=== PATIENT | male | born 1935 | race Caucasian/White ===

== ENCOUNTER 2016-12-18 09:15 | Outpatient (CLI) | payer MEDICARE, OTHER | END 2016-12-18 23:59 | DX: R73.01 Impaired fasting glucose (principal); C90.00 Multiple myeloma not having achieved remission; I10 Essential (primary) hypertension; I48.0 Paroxysmal atrial fibrillation ==

== ENCOUNTER 2017-05-28 11:11 | Outpatient (CLI) | payer MEDICARE, OTHER ==
--- NOTE | 2017-05-28 17:38 | Ultrasound Report ---
ULTRASOUND LEFT POSTERIOR CHEST: 05/28/2017 CLINICAL INDICATION: Palpable lesion. TECHNIQUE: Real-time scanning was performed with auto service representative static images obtained. Ultrasound of the left posterior chest was performed. No discrete solid or cystic mass is seen. No sonographically suspicious findings are identified. IMPRESSION: NO SONOGRAPHIC CORRELATE TO THE PALPABLE ABNORMALITY. JOB #: [id number] EXT JOB #:
== END 2017-05-28 11:12 | disposition home or self-care (01) ==
LOC: DI 11:11
PROVIDERS: ATTEND Nurse Practitioner Family
DX: R22.2 Localized swelling, mass and lump, trunk (principal)
CPT/HCPCS: 76604

== ENCOUNTER 2017-08-02 14:54 | Outpatient (CLI) | payer MEDICARE, OTHER ==
[2017-08-02 13:18] LABS: BASOPHILS % (AUTO) 0.8 %; EOSINOPHILS # (AUTO) 0.1 10^3/uL (0.0-0.7); EOSINOPHILS % (AUTO) 1.6 %; HCT - HEMATOCRIT 36.7 % (42.0-52.0); HGB - HEMOGLOBIN 12.7 g/dL (14.0-18.0); LYMPHOCYTES # (AUTO) 1.5 10^3/uL (1.5-3.5); LYMPHOCYTES % (AUTO) 38.5 %; MEAN CORPUSCULAR HEMOGLOBIN 34.2 pg (27.0-31.0); MEAN CORPUSCULAR HGB CONC 34.6 g/dL (32.0-36.0); MEAN PLATELET VOLUME 9.4 fL (7.4-11.4); MONOCYTES # (AUTO) 0.4 10^3/uL (0.0-1.0); NEUTROPHILS % (AUTO) 49.1 %; NUCLEATED RED BLOOD CELLS AUTO 0.2 /100WBC; RED BLOOD COUNT 3.71 10^6/uL (4.70-6.10); RED CELL DISTRIBUTION WIDTH 15.1 % (12.0-15.0)
[2017-08-02 14:23] LABS: ALBUMIN/GLOBULIN RATIO 0.7 (1.0-2.2); BILIRUBIN,TOTAL 2.2 mg/dL (0.2-1.0); BUN - BLOOD UREA NITROGEN 15 mg/dL (6-20); CALCIUM 9.4 mg/dL (8.5-10.3); CARBON DIOXIDE - CO2 24 mmol/L (21-32); CHLORIDE 106 mmol/L (101-111); CHOL/HDL RATIO 3.2 (<5.0); CHOLESTEROL 93 mg/dL; CREATININE 1.1 mg/dL (0.6-1.2); GFR - MDRD 64 (>89); GLUCOSE 128 mg/dL (70-100); HDL CHOLESTEROL 29 mg/dL; LDL/HDL RATIO 1.7 (<3.6); POTASSIUM 3.7 mmol/L (3.5-5.0); SODIUM 137 mmol/L (135-145); TOTAL PROTEIN 9.5 g/dL (6.7-8.2); TRIGLYCERIDES 73 mg/dL; VLDL CHOLESTEROL 15 mg/dL
== END 2017-08-02 14:55 | disposition home or self-care (01) ==
LOC: LAB.WCP 14:54
PROVIDERS: ATTEND Family Medicine
DX: C90.00 Multiple myeloma not having achieved remission (principal)
CPT/HCPCS: 36415; 80053; 80061; 85025

== ENCOUNTER 2017-08-19 12:52 | Outpatient (CLI) | payer MEDICARE, OTHER | END 2017-08-19 12:53 | disposition home or self-care (01) | LOC: DI 12:52 | PROVIDERS: ATTEND Family Medicine | DX: I48.91 Unspecified atrial fibrillation (principal); I77.810 Thoracic aortic ectasia; I07.1 Rheumatic tricuspid insufficiency | CPT/HCPCS: 93306 ==

== ENCOUNTER 2017-09-19 15:00 | Outpatient (CLI) | payer MEDICARE, OTHER | END 2017-09-19 15:01 | disposition home or self-care (01) | LOC: SC 15:00 | PROVIDERS: ATTEND Specialist | DX: R06.83 Snoring (principal); R53.83 Other fatigue; I48.91 Unspecified atrial fibrillation; G47.00 Insomnia, unspecified | CPT/HCPCS: 99205; G0463; 99212 ==

== ENCOUNTER 2017-10-10 13:21 | Outpatient (CLI) | payer MEDICARE, OTHER | END 2017-10-10 23:59 | disposition home or self-care (01) | LOC: RT 13:21 | PROVIDERS: ATTEND Internal Medicine Cardiovascular Disease | DX: I48.0 Paroxysmal atrial fibrillation (principal) | CPT/HCPCS: 93005 ==

== ENCOUNTER 2017-11-06 08:00 | Outpatient (CLI) | payer MEDICARE, OTHER | END 2017-11-06 08:01 | disposition home or self-care (01) | LOC: LAB.R 08:00 | PROVIDERS: ATTEND Physician Assistant Medical | DX: L02.91 Cutaneous abscess, unspecified (principal) | CPT/HCPCS: 87070; 87205 ==

== ENCOUNTER 2017-12-06 22:28 | Outpatient (CLI) | payer MEDICARE, OTHER | END 2017-12-06 22:29 | disposition home or self-care (01) | LOC: SC 22:28 | PROVIDERS: ATTEND Specialist | DX: G47.33 Obstructive sleep apnea (adult) (pediatric) (principal); I48.91 Unspecified atrial fibrillation; G47.61 Periodic limb movement disorder | CPT/HCPCS: 95810 ==

== ENCOUNTER 2018-01-15 14:16 | Outpatient (CLI) | payer MEDICARE, OTHER | END 2018-01-15 14:17 | disposition home or self-care (01) | LOC: SC 14:16 | PROVIDERS: ATTEND Nurse Practitioner Family | DX: G47.33 Obstructive sleep apnea (adult) (pediatric) (principal); G47.61 Periodic limb movement disorder; I48.91 Unspecified atrial fibrillation | CPT/HCPCS: 99214; G0463; 99212 ==

== ENCOUNTER 2019-04-03 11:38 | Outpatient (CLI) | payer MEDICARE, OTHER ==
--- NOTE | 2019-04-03 14:36 | XRAY Report ---
Reason: PNEUMONIA Procedure Date: 04/03/2019 Accession Number: [id number] / [id number] Procedure: WCP - Chest 2 View X-Ray CPT Code: 76243 FULL RESULT: EXAM: CHEST RADIOGRAPHY EXAM DATE: 04/03/2019 11:47 AM. CLINICAL HISTORY: PNEUMONIA. Cough COMPARISON: 3 516 TECHNIQUE: 2 views. FINDINGS: Lungs/Pleura: No focal opacities evident. No pleural effusion. No pneumothorax. Normal volumes. Mediastinum: Heart is borderline in size Other: Upper trachea deviated to the right. Rounded calcification over the left apex question enlarged thyroid. Degenerative change in the shoulders and spine. IMPRESSION: Clear lungs. Borderline heart size. Tracheal deviation to the right with possible partially calcified thyroid nodule. Suggest correlation with thyroid ultrasound. RADIA
== END 2019-04-03 11:39 | disposition home or self-care (01) ==
LOC: DI.WCP 11:38
PROVIDERS: ATTEND Family Medicine
DX: J18.9 Pneumonia, unspecified organism (principal); J39.8 Other specified diseases of upper respiratory tract
CPT/HCPCS: 71046

== ENCOUNTER 2020-05-12 08:00 | Outpatient (CLI) | payer MEDICARE, OTHER ==
[2020-05-12 18:41] LABS: BASOPHILS % (AUTO) 0.7 %; EOSINOPHILS # (AUTO) 0.1 10^3/uL (0.0-0.7); EOSINOPHILS % (AUTO) 2.2 %; HGB - HEMOGLOBIN 10.8 g/dL (14.0-18.0); LYMPHOCYTES # (AUTO) 1.2 10^3/uL (1.5-3.5); LYMPHOCYTES % (AUTO) 27.6 %; MEAN CORPUSCULAR HEMOGLOBIN 32.5 pg (27.0-31.0); MEAN CORPUSCULAR HGB CONC 32.4 g/dL (32.0-36.0); MEAN CORPUSCULAR VOLUME 100.3 fL (80.0-94.0); MEAN PLATELET VOLUME 11.5 fL (7.4-11.4); MONOCYTES # (AUTO) 0.5 10^3/uL (0.0-1.0); MONOCYTES % (AUTO) 12.5 %; NEUTROPHILS # (AUTO) 2.4 10^3/uL (1.5-6.6); NEUTROPHILS % (AUTO) 56.8 %; PLT - PLATELET COUNT 118 10^3/uL (130-450); RED BLOOD COUNT 3.32 10^6/uL (4.70-6.10); WHITE BLOOD COUNT 4.2 x10^3/uL (4.8-10.8)
[2020-05-12 19:00] LABS: CHOLESTEROL 95 mg/dL; HDL CHOLESTEROL 24 mg/dL; LDL CHOLESTEROL,CALCULATED 47 mg/dL; VLDL CHOLESTEROL 24 mg/dL
[2020-05-13 10:03] LABS: CREATININE,URINE 77.6 mg/dL; MICROALBUM/CREATININE RATIO,UR 373.7 ug/mg (<30.0)
[2020-05-13 10:13] LABS: HB2 TOTAL 11.8 g/dL; HEMOGLOBIN A1C 0.54 g/dL; HEMOGLOBIN A1C % 6.3 % (4.6-6.2)
== END 2020-05-12 23:59 | disposition home or self-care (01) ==
LOC: LAB.WCP 08:00
PROVIDERS: ATTEND Family Medicine
DX: I10 Essential (primary) hypertension (principal); D47.2 Monoclonal gammopathy; C90.00 Multiple myeloma not having achieved remission; I48.91 Unspecified atrial fibrillation; R73.01 Impaired fasting glucose
CPT/HCPCS: 36415; 80053; 80061; 82043; 82570; 83036; 83721; 84443; 85025

== ENCOUNTER 2021-04-04 09:46 | Outpatient (CLI) | payer MEDICARE, OTHER ==
[2021-04-04 12:16] LABS: CREATININE,URINE 60.8 mg/dL; MICROALBUM/CREATININE RATIO,UR 986.8 ug/mg (<30.0)
[2021-04-04 12:19] LABS: THYROID STIMULATING HORMONE 0.35 uIU/mL (0.34-5.60)
[2021-04-04 12:30] LABS: CHOL/HDL RATIO 2.6 (<5.0); CHOLESTEROL 98 mg/dL; HDL CHOLESTEROL 37 mg/dL; LDL CHOLESTEROL,CALCULATED 51 mg/dL; LDL/HDL RATIO 1.4 (<3.6); TRIGLYCERIDES 50 mg/dL; VLDL CHOLESTEROL 10 mg/dL
[2021-04-04 12:40] LABS: ESTIMATED AVERAGE GLUCOSE 97 mg/dL (70-100)
== END 2021-04-04 09:47 | disposition home or self-care (01) ==
LOC: LAB.N 09:46
PROVIDERS: ATTEND Internal Medicine
DX: E11.9 Type 2 diabetes mellitus without complications (principal); G62.9 Polyneuropathy, unspecified
CPT/HCPCS: 36415; 80061; 82043; 82570; 82607; 83036; 83721; 84443

== ENCOUNTER 2021-10-20 14:41 | Outpatient (CLI) | payer MEDICARE, OTHER ==
--- NOTE | 2021-10-20 17:46 | XRAY Report ---
PROCEDURE: Lumbar Spine 2 View INDICATIONS: ACUTE LUMBAR BACK PAIN, WITH HX OF MULTIPLE MYELOMA TECHNIQUE: 3 views of the lumbar spine were acquired. COMPARISON: December 13, 2016. FINDINGS: L-SPINE: 5 nonrib-bearing vertebrae. No acute displaced fracture or malalignment. The vertebral body heights are maintained. The disc space heights are essentially preserved. Mild anterior endplate ost eophytosis. Facet arthrosis, most prominent at L5-S1. The sacroiliac joints appear patent. SOFT TISSUES: Calcified gallstone in the right upper quadrant. IMPRESSION: 1.No acute osseous abnormality of the lumbar spine. Reviewed by: Luan Wells MD on 10/20/2021 5:45 PM PST Approved by: Luan Wells MD on 10/20/2021 5:45 PM PST Station ID: [id number]
== END 2021-10-20 14:42 | disposition home or self-care (01) ==
LOC: DI.N 14:41
PROVIDERS: ATTEND Internal Medicine
DX: M54.50 Low back pain, unspecified (principal)

== ENCOUNTER 2022-01-23 10:37 | Outpatient (CLI) | payer MEDICARE, OTHER ==
[2022-01-23 18:21] LABS: CHOL/HDL RATIO 2.3 (<5.0); CHOLESTEROL 86 mg/dL; HDL CHOLESTEROL 38 mg/dL; LDL CHOLESTEROL,CALCULATED 38 mg/dL; TRIGLYCERIDES 48 mg/dL; VLDL CHOLESTEROL 10 mg/dL
[2022-01-23 18:39] LABS: THYROID STIMULATING HORMONE 0.58 uIU/mL (0.34-5.60)
[2022-01-23 20:44] LABS: ESTIMATED AVERAGE GLUCOSE 108 mg/dL (70-100); HEMOGLOBIN A1c% 5.4 % (4.27-6.07)
== END 2022-01-23 10:38 | disposition home or self-care (01) ==
LOC: LAB.N 10:37
PROVIDERS: ATTEND Internal Medicine
DX: E11.9 Type 2 diabetes mellitus without complications (principal)
CPT/HCPCS: 36415; 80061; 83036; 83721; 84443

== ENCOUNTER 2022-11-29 09:57 | Outpatient (CLI) | payer MEDICARE, OTHER ==
[2022-11-29 12:15] LABS: BUN - BLOOD UREA NITROGEN 20 mg/dL (6-20); CALCIUM 9.9 mg/dL (8.5-10.3); CARBON DIOXIDE - CO2 26 mmol/L (21-32); CHLORIDE 106 mmol/L (101-111); CHOL/HDL RATIO 2.6 (<5.0); CHOLESTEROL 95 mg/dL; GFR - MDRD 71 (>89); GLUCOSE 109 mg/dL (70-100); HDL CHOLESTEROL 36 mg/dL; LDL CHOLESTEROL,CALCULATED 50 mg/dL; LDL/HDL RATIO 1.4 (<3.6); POTASSIUM 3.9 mmol/L (3.5-5.0); SODIUM 136 mmol/L (135-145); TRIGLYCERIDES 47 mg/dL; VLDL CHOLESTEROL 9 mg/dL
[2022-11-29 13:06] LABS: ESTIMATED AVERAGE GLUCOSE 114 mg/dL (70-100); HEMOGLOBIN A1c% 5.6 % (4.27-6.07)
== END 2022-11-29 09:58 | disposition home or self-care (01) ==
LOC: LAB.N 09:57
PROVIDERS: ATTEND Internal Medicine
DX: E11.9 Type 2 diabetes mellitus without complications (principal)
CPT/HCPCS: 36415; 80048; 80061; 83036; 83721

== ENCOUNTER 2023-01-30 08:50 | Outpatient (CLI) | payer MEDICARE, OTHER ==
[2023-01-30] MEDS ORDERED: LIDOCAINE-MPF 1% 5 ML VIAL ONE (09:25)
[2023-01-30] MEDS ORDERED: MIDAZOLAM 2 MG/2 ML VIAL ONE (09:32)
[2023-01-30] MEDS ORDERED: fentaNYL 100 MCG/2 ML VIAL ONE (09:32)
[2023-01-30 09:58] LABS: BASOPHILS % (AUTO) 0.8 %; EOSINOPHILS # (AUTO) 0.1 10^3/uL (0.0-0.7); EOSINOPHILS % (AUTO) 1.9 %; HCT - HEMATOCRIT 36.5 % (42.0-52.0); HGB - HEMOGLOBIN 12.3 g/dL (14.0-18.0); LYMPHOCYTES # (AUTO) 1.1 10^3/uL (1.5-3.5); LYMPHOCYTES % (AUTO) 28.5 %; MEAN CORPUSCULAR HEMOGLOBIN 33.4 pg (27.0-31.0); MEAN CORPUSCULAR HGB CONC 33.7 g/dL (32.0-36.0); MEAN CORPUSCULAR VOLUME 99.2 fL (80.0-94.0); MEAN PLATELET VOLUME 11.6 fL (7.4-11.4); MONOCYTES # (AUTO) 0.5 10^3/uL (0.0-1.0); MONOCYTES % (AUTO) 12.3 %; NEUTROPHILS # (AUTO) 2.1 10^3/uL (1.5-6.6); NEUTROPHILS % (AUTO) 56.2 %; PLT - PLATELET COUNT 118 10^3/uL (130-450); RED BLOOD COUNT 3.68 10^6/uL (4.70-6.10); RED CELL DISTRIBUTION WIDTH 15.5 % (12.0-15.0); WHITE BLOOD COUNT 3.8 x10^3/uL (4.8-10.8)
[2023-01-30 10:24] LABS: INR 1.5 (0.8-1.2)
[2023-01-30 10:31] LABS: PARTIAL THROMBOPLASTIN TIME 39.6 secs (24.9-33.3)
[2023-01-30] MEDS ORDERED: fentaNYL 100 MCG/2 ML VIAL IVP PRN (10:50)
[2023-01-30] MEDS ORDERED: MIDAZOLAM 2 MG/2 ML VIAL IVP ONE (10:50)
[2023-01-30] MEDS ORDERED: LIDOCAINE-MPF 1% 5 ML VIAL SUBQ ONE (10:50)
[2023-01-30] MEDS ORDERED: LACTATED RINGERS 1,000 ML IV ONE (11:50)
--- NOTE | 2023-01-30 12:53 | CT Report ---
PROCEDURE: BONE MARROW BX W/ASPIRATION Sedation analgesia for 40 minutes. INDICATIONS: MULTIPLE MYELOMA TECHNIQUE: The indications, alternatives, benefits, risks, and possible complications of the procedure were comm unicated to the patient. Informed written consent from the patient was obtained and placed in the art. Continuous EKG and hemodynamic monitoring was started by trained personnel. For radiation dose reduction, the following was used: automated exposure control, adjustment of mA and/or kV according to patient size. The patient was brought to the CT suite and crozer operator spiral CT imaging was performed with localization g rid. The appropriate site for percutaneous access to the biopsy target was marked, was prepped and d raped sterilely, and was infused with local anaesthesia. Under CT guidance, a core biopsy trocar and needle set was advanced to the biopsy target, and specimen(s) were obtained. Bone marrow aspirate an d a bone core were obtained. The trocar and needle were then removed, and the patient was sent for po st-procedure monitoring. COMPARISON: None. FINDINGS: Biopsy site: Left posterior iliac bone Needle: 11 gauge biopsy needle with introducer trocar. Number of passes: 3 Medications: 1% lidocaine for local anaesthesia. IV Fentanyl and Versed for conscious sedation for 40 minutes (see nursing record). Complications: None. IMPRESSION: Successful CT-guided bone marrow biopsy and aspiration, left posterior iliac bone. Reviewed by: Lucien Calle MD on 01/30/2023 12:52 PM PDT Approved by: Lucien Calle MD on 01/30/2023 12:52 PM PDT Station ID: [id number]
[2023-01-30 13:05] VITALS: BP 138/72
== END 2023-01-30 08:51 | disposition home or self-care (01) ==
LOC: DI 08:50
PROVIDERS: ATTEND Internal Medicine Hematology & Oncology
DX: C90.00 Multiple myeloma not having achieved remission (principal)
CPT/HCPCS: 36415; 38222; 77012; 85025; 85610; 85730; J7120

== ENCOUNTER 2023-02-11 15:33 | Outpatient (CLI) | payer MEDICARE, OTHER ==
--- NOTE | 2023-02-11 15:49 | XRAY Report ---
PROCEDURE: Chest 2 View X-Ray INDICATIONS: SOB TECHNIQUE: 2 views of the chest were acquired. COMPARISON: None. FINDINGS: Surgical changes and devices: None. Lungs and pleura: Large right pleural effusion. Mediastinum: Mediastinal contours appear normal. Heart size is enlarged. Bones and chest wall: No suspicious bony lesions. Overlying soft tissues appear unremarkable. IMPRESSION: Large right pleural effusion. Reviewed by: Erich Johnson on 02/11/2023 3:48 PM PDT Approved by: Erich Johnson on 02/11/2023 3:48 PM PDT Station ID: [id number]
== END 2023-02-11 15:34 | disposition home or self-care (01) ==
LOC: DI 15:33
PROVIDERS: ATTEND Physician Assistant
DX: J90 Pleural effusion, not elsewhere classified (principal)

== ENCOUNTER 2023-02-12 10:30 | Emergency (ER) | payer MEDICARE, OTHER ==
--- OUTSIDE RECORDS SUMMARY | 2023-02-12 11:16 | EXTERNAL MEDICAL SUMMARY RPT | Continuity of Care Document ---
:1935 Author Organization [facility] Address [address] [place], [place] [id number] Phone Allergies No information. Encounters No information. Functional Status No information. Immunizations No information. Medications No information. Problems No information. Procedures No information. Results/Labs test date author facility value unit interpret ation Result panel 1 (unknown) (no (unknown) (unknown) (no value) (units (unk nown) date) unknown) (unknown) (no (unknown) (unknown) 12/27/22 (units (unkno wn) date) unknown) (unknown) (no (unknown) (unknown) 87 y/o M (units (unkno wn) date) presents to unknown) clinic for 2 -3 month follow-up. 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 unknown) (unknown) (no (unknown) (unknown) Documented By: (units (unknown) date) Matthew March MD unknown) 12/27/22 1415 (unknown) (no (unknown) (unknown) Draft (units (unkno wn) date) unknown) (unknown) (no (unknown) (unknown) Family History (units (unknown) date) (Reviewed unknown) 07/27/21 @ 16:14 by Matthew March MD) (unknown) (no (unknown) (unknown) Frequency of (units (u nknown) date) urination unknown) (unknown) (no (unknown) (unknown) H/O (units (unkno wn) date) transurethral unknown) resection of prostate (unknown) (no (unknown) (unknown) Hip joint (units (unkn own) date) replacement unknown) status (unknown) (no (unknown) (unknown) History of hip (units (unknown) date) replacement unknown) (unknown) (no (unknown) (unknown) Hyperlipidemia (units (unknown) date) unknown) (unknown) (no (unknown) (unknown) Hypertension (units (u nknown) date) unknown) (unknown) (no (unknown) (unknown) Incomplete (units (unk nown) date) emptying of unknown) bladder (unknown) (no (unknown) (unknown) Intake Note: (units (u nknown) date) unknown) (unknown) (no (unknown) (unknown) Intake performed (units (unknown) date) by: unknown) Liza Still (unknown) (no (unknown) (unknown) Intake (units (unkno wn) date) unknown) (unknown) (no (unknown) (unknown) Intake- Clincial (units (unknown) date) Staff unknown) (unknown) (no (unknown) (unknown) [facility] (units (unknown) date) unknown) (unknown) (no (unknown) (unknown) Loc: [facility] (units (unkno wn) date) unknown) (unknown) (no (unknown) (unknown) [id number] (units (unk nown) date) unknown) (unknown) (no (unknown) (unknown) Medical History (units (unknown) date) (Updated 11/16/21 unknown) @ 15:07 by Matthew March MD) (unknown) (no (unknown) (unknown) No Known Drug (units ( unknown) date) Allergies Allergy unknown) (Verified 10/22/22 15:05) (unknown) (no (unknown) (unknown) Nocturia (units (unkno wn) date) unknown) (unknown) (no (unknown) (unknown) Overactive (units (unk nown) date) bladder unknown) (unknown) (no (unknown) (unknown) PFSH (units (unkno wn) date) unknown) (unknown) (no (unknown) (unknown) Patient: (units (unkno wn) date) Jennifer Brady unknown) d MR#: (unknown) (no (unknown) (unknown) Reason For Visit (units (unknown) date) unknown) (unknown) (no (unknown) (unknown) Signed By: (units (unk nown) date) unknown) (unknown) (no (unknown) (unknown) Smoking Status: (units (unknown) date) Never smoker unknown) (unknown) (no (unknown) (unknown) Social History (units (unknown) date) (Reviewed unknown) 07/27/21 @ 16:14 by Matthew March MD) (unknown) (no (unknown) (unknown) Surgical History (units (unknown) date) (Reviewed unknown) 07/27/21 @ 16:14 by Matthew March MD) (unknown) (no (unknown) (unknown) This note may (units ( unknown) date) have been all or unknown) partially generated using voice recognition (unknown) (no (unknown) (unknown) Tobacco Status (units (unknown) date) unknown) (unknown) (no (unknown) (unknown) Type(s) of (units (unk nown) date) exercise: unknown) bicycling (unknown) (no (unknown) (unknown) Urology Office (units (unknown) date) Visit unknown) (unknown) (no (unknown) (unknown) Visit Reasons: (units (unknown) date) 2-3 MO F/U unknown) (unknown) (no (unknown) (unknown) alcohol intake: (units (unknown) date) never unknown) (unknown) (no (unknown) (unknown) caffeine: Yes (units ( unknown) date) unknown) (unknown) (no (unknown) (unknown) frequency: 5-6 (units (unknown) date) times per week unknown) (unknown) (no (unknown) (unknown) have occurred. (units (unknown) date) If there are any unknown) questions, please contact the Medical Records (unknown) (no (unknown) (unknown) household (units (unkn own) date) members: spouse unknown) (unknown) (no (unknown) (unknown) marital status: (units (unknown) date) unknown) (unknown) (no (unknown) (unknown) may occur. (units (unk nown) date) Occasional unknown) wrong-word or 'sound-alike' substitutions may have (unknown) (no (unknown) (unknown) occupational (units (u nknown) date) status: other unknown) (unknown) (no (unknown) (unknown) occurred due to (units (unknown) date) the inherent unknown) limitations of voice recognition software. Please (unknown) (no (unknown) (unknown) read the note (units ( unknown) date) carefully and unknown) recognize, using context, where these substitutions (unknown) (no (unknown) (unknown) software. (units (unkn own) date) Although every unknown) effort is made to edit content, blocklayer errors (unknown) (no (unknown) (unknown) substance use (units ( unknown) date) type: does not unknown) use Result panel 2 (unknown) (no (unknown) (unknown) (no value) (units (unk nown) date) unknown) (unknown) (no (unknown) (unknown) (1) Overactive (units (unknown) date) bladder: unknown) (unknown) (no (unknown) (unknown) (2) Incomplete (units (unknown) date) emptying of unknown) bladder: (unknown) (no (unknown) (unknown) (3) Nocturia: (units ( unknown) date) unknown) (unknown) (no (unknown) (unknown) 12/27/22 (units (unkno wn) date) unknown) (unknown) (no (unknown) (unknown) 01/08/23 1920 (units ( unknown) date) unknown) (unknown) (no (unknown) (unknown) 14:23 (units (unkno wn) date) unknown) (unknown) (no (unknown) (unknown) 87 y/o M presents (units (unknown) date) to clinic for 2 -3 unknown) month follow-up. (unknown) (no (unknown) (unknown) Add'l Complaint: (units (unknown) date) unknown) (unknown) (no (unknown) (unknown) Age/Sex: 87 / M (units (unknown) date) Date of Service: unknown) (unknown) (no (unknown) (unknown) Allergies (units (unkn own) date) unknown) (unknown) (no (unknown) (unknown) [place], [place] (units ( unknown) date) [id number] unknown) (unknown) (no (unknown) (unknown) Assessment + Plan (units (unknown) date) unknown) (unknown) (no (unknown) (unknown) Assessment and (units (unknown) date) plan: As noted in unknown) the history of present illness. 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 unknown) (unknown) (no (unknown) (unknown) Blood Pressure (units (unknown) date) Location Lt unknown) brachial (unknown) (no (unknown) (unknown) Brother Atrial (units (unknown) date) fibrillation unknown) (unknown) (no (unknown) (unknown) Cancer (units (unkno wn) date) unknown) (unknown) (no (unknown) (unknown) Chief Complaint (units (unknown) date) unknown) (unknown) (no (unknown) (unknown) Chief Complaint: (units (unknown) date) Overactive bladder unknown) (unknown) (no (unknown) (unknown) Code(s): (units (unkno wn) date) unknown) (unknown) (no (unknown) (unknown) : 1935 (units (unknown) date) Acct:[id number] unknown) (unknown) (no (unknown) (unknown) Dept at (units (unkno wn) date) . unknown) (unknown) (no (unknown) (unknown) Details: (units (unkno wn) date) unknown) (unknown) (no (unknown) (unknown) Documented By: (units (unknown) date) Matthew March MD unknown) 12/27/22 1415 (unknown) (no (unknown) (unknown) Family History (units (unknown) date) (Reviewed 07/27/21 unknown) @ 16:14 by Matthew March MD) (unknown) (no (unknown) (unknown) Frequency of (units (u nknown) date) urination unknown) (unknown) (no (unknown) (unknown) H/O transurethral (units (unknown) date) resection of unknown) prostate (unknown) (no (unknown) (unknown) HPI (units (unkno wn) date) unknown) (unknown) (no (unknown) (unknown) Hip joint (units (unkn own) date) replacement status unknown) (unknown) (no (unknown) (unknown) History of hip (units (unknown) date) replacement unknown) (unknown) (no (unknown) (unknown) Hyperlipidemia (units (unknown) date) unknown) (unknown) (no (unknown) (unknown) Hypertension (units (u nknown) date) unknown) (unknown) (no (unknown) (unknown) Incomplete (units (unk nown) date) emptying of bladder unknown) (unknown) (no (unknown) (unknown) Incomplete (units (unk nown) date) emptying of unknown) bladder, benign prostatic hyperplasia, frequency of (unknown) (no (unknown) (unknown) Intake Note: (units (u nknown) date) unknown) (unknown) (no (unknown) (unknown) Intake performed (units (unknown) date) by: Liza Still unknown) (unknown) (no (unknown) (unknown) Intake (units (unkno wn) date) unknown) (unknown) (no (unknown) (unknown) Intake- Clincial (units (unknown) date) Staff unknown) (unknown) (no (unknown) (unknown) [facility] (units (unknown) date) unknown) (unknown) (no (unknown) (unknown) Jackie and revisit (units (unknown) date) the beta 3 agonist unknown) at that time. We will see with the company (unknown) (no (unknown) (unknown) Loc: [facility] (units (unkno wn) date) unknown) (unknown) (no (unknown) (unknown) [id number] (units (unk nown) date) unknown) (unknown) (no (unknown) (unknown) Medical History (units (unknown) date) (Updated 11/16/21 @ unknown) 15:07 by Matthew March MD) (unknown) (no (unknown) (unknown) N32.81 - (units (unkno wn) date) Overactive bladder unknown) (unknown) (no (unknown) (unknown) No Known Drug (units ( unknown) date) Allergies Allergy unknown) (Verified 12/27/22 14:22) (unknown) (no (unknown) (unknown) Nocturia (units (unkno wn) date) unknown) (unknown) (no (unknown) (unknown) Overactive bladder (units (unknown) date) unknown) (unknown) (no (unknown) (unknown) Oxygen Delivery (units (unknown) date) Method room air unknown) (unknown) (no (unknown) (unknown) PFSH (units (unkno wn) date) unknown) (unknown) (no (unknown) (unknown) Patient: (units (unkno wn) date) Aiden Brady unknown) MR#: (unknown) (no (unknown) (unknown) Plan (units (unkno wn) date) unknown) (unknown) (no (unknown) (unknown) Position Sitting (units (unknown) date) unknown) (unknown) (no (unknown) (unknown) Pulse 75 (units (unkno wn) date) unknown) (unknown) (no (unknown) (unknown) Pulse Oximetry (%) (units (unknown) date) 95 unknown) (unknown) (no (unknown) (unknown) Pulse Source (units (u nknown) date) Monitor unknown) (unknown) (no (unknown) (unknown) R33.9 - Retention (units (unknown) date) of urine, unknown) unspecified (unknown) (no (unknown) (unknown) R35.1 - Nocturia (units (unknown) date) unknown) (unknown) (no (unknown) (unknown) Reason For Visit (units (unknown) date) unknown) (unknown) (no (unknown) (unknown) Respiration 16 (units (unknown) date) unknown) (unknown) (no (unknown) (unknown) Signed By: (units (unk nown) date) <Electronically unknown) signed by Matthew March MD> (unknown) (no (unknown) (unknown) Signed (units (unkno wn) date) unknown) (unknown) (no (unknown) (unknown) Smoking Status: (units (unknown) date) Never smoker unknown) (unknown) (no (unknown) (unknown) Social History (units (unknown) date) (Reviewed 07/27/21 unknown) @ 16:14 by Matthew March MD) (unknown) (no (unknown) (unknown) Status: Acute (units ( unknown) date) unknown) (unknown) (no (unknown) (unknown) Surgical History (units (unknown) date) (Reviewed 07/27/21 unknown) @ 16:14 by Matthew March MD) (unknown) (no (unknown) (unknown) This note may have (units (unknown) date) been all or unknown) partially generated using voice recognition (unknown) (no (unknown) (unknown) This very pleasant (units (unknown) date) 87-year-old male unknown) returns to urology clinic in follow-up of (unknown) (no (unknown) (unknown) Tobacco Status (units (unknown) date) unknown) (unknown) (no (unknown) (unknown) Type(s) of (units (unk nown) date) exercise: bicycling unknown) (unknown) (no (unknown) (unknown) Urology Office (units (unknown) date) Visit unknown) (unknown) (no (unknown) (unknown) Visit Reasons: 2-3 (units (unknown) date) [place] F/U unknown) (unknown) (no (unknown) (unknown) Vitals (units (unkno wn) date) unknown) (unknown) (no (unknown) (unknown) alcohol intake: (units (unknown) date) never unknown) (unknown) (no (unknown) (unknown) caffeine: Yes (units ( unknown) date) unknown) (unknown) (no (unknown) (unknown) can do an (units (unkn own) date) hopefully we can unknown) get the situation corrected for the patient. (unknown) (no (unknown) (unknown) effects and would (units (unknown) date) like to be able to unknown) switch. I discussed with him that we will (unknown) (no (unknown) (unknown) frequency: 5-6 (units (unknown) date) times per week unknown) (unknown) (no (unknown) (unknown) have occurred. If (units (unknown) date) there are any unknown) questions, please contact the Medical Records (unknown) (no (unknown) (unknown) he feels he is (units (unknown) date) getting along well. unknown) Again had multiple questions about the (unknown) (no (unknown) (unknown) his overactive (units (unknown) date) bladder. He is been unknown) prescribed Gemtesa but found that they (unknown) (no (unknown) (unknown) household members: (units (unknown) date) spouse unknown) (unknown) (no (unknown) (unknown) is so overall time (units (unknown) date) today 31 minutes unknown) plan would be to return to clinic the end of (unknown) (no (unknown) (unknown) marital status: (units (unknown) date) unknown) (unknown) (no (unknown) (unknown) may occur. (units (unk nown) date) Occasional unknown) wrong-word or 'sound-alike' substitutions may have (unknown) (no (unknown) (unknown) occupational (units (u nknown) date) status: other unknown) (unknown) (no (unknown) (unknown) occurred due to (units (unknown) date) the inherent unknown) limitations of voice recognition software. Please (unknown) (no (unknown) (unknown) prostate. (units (unkn own) date) unknown) (unknown) (no (unknown) (unknown) read the note (units ( unknown) date) carefully and unknown) recognize, using context, where these substitutions (unknown) (no (unknown) (unknown) situation corrected (units (unknown) date) for him because it unknown) his age the beta 3 would be indicated and (unknown) (no (unknown) (unknown) software. Although (units (unknown) date) every effort is unknown) made to edit content, blocklayer errors (unknown) (no (unknown) (unknown) solifenacin is is (units (unknown) date) cheaper it does not unknown) work as well and he does have some side (unknown) (no (unknown) (unknown) substance use (units ( unknown) date) type: does not use unknown) (unknown) (no (unknown) (unknown) supply and wants (units (unknown) date) to save this for unknown) when he travels to [place]. He is continued on (unknown) (no (unknown) (unknown) the (units (unkno wn) date) anticholinergics unknown) are concerning particularly in longer term use. Otherwise (unknown) (no (unknown) (unknown) therapy he did (units (unknown) date) take 7 days of unknown) antibiotics because of an injury to his leg. It (unknown) (no (unknown) (unknown) try to involve the (units (unknown) date) company in its unknown) guest services representative to see if we can get this (unknown) (no (unknown) (unknown) urination, urinary (units (unknown) date) leak, nocturia, unknown) history of Transurethral resection of the (unknown) (no (unknown) (unknown) wanted him to pay (units (unknown) date) 400 dollars a month unknown) and he can not afford this he does have a Social History date description facility 2022-12-27 00:00 Never smoked tobacco ([facility] Vital Signs date measurement value units 2022-12-27 00:00 BP_diastolic 76 mmHg 2022-12-27 00:00 BP_systolic 149 mmHg 2022-12-27 00:00 heart_rate 75 /min 2022-12-27 00:00 o2_saturation 95 % 2022-12-27 00:00 respiration_rate 16 /min
[2023-02-12 11:29] LABS: BASOPHILS % (AUTO) 0.2 %; EOSINOPHILS % (AUTO) 0.6 %; HCT - HEMATOCRIT 32.5 % (42.0-52.0); HGB - HEMOGLOBIN 11.2 g/dL (14.0-18.0); LYMPHOCYTES # (AUTO) 0.8 10^3/uL (1.5-3.5); LYMPHOCYTES % (AUTO) 14.8 %; MEAN CORPUSCULAR HEMOGLOBIN 34.5 pg (27.0-31.0); MEAN CORPUSCULAR HGB CONC 34.5 g/dL (32.0-36.0); MEAN PLATELET VOLUME 10.6 fL (7.4-11.4); MONOCYTES # (AUTO) 0.5 10^3/uL (0.0-1.0); MONOCYTES % (AUTO) 9.9 %; NEUTROPHILS % (AUTO) 74.1 %; PLT - PLATELET COUNT 118 10^3/uL (130-450); RED BLOOD COUNT 3.25 10^6/uL (4.70-6.10); RED CELL DISTRIBUTION WIDTH 15.9 % (12.0-15.0); WHITE BLOOD COUNT 5.4 x10^3/uL (4.8-10.8)
[2023-02-12 11:39] LABS: CALCIUM 9.9 mg/dL (8.5-10.3); CREATININE 1.1 mg/dL (0.6-1.2); POTASSIUM 3.7 mmol/L (3.5-5.0)
[2023-02-12 12:32] VITALS: BP 140/72
--- NOTE | 2023-02-12 12:34 | ED Physician Documentation ---
History of Present Illness - Stated complaint Stated Complaint: LIQUID IN LUNGS - Chief complaint Chief Complaint: Resp - History obtained from History obtained from: Patient, Family - History of Present Illness Timing: How many weeks ago (several) Pain level max: 0 Pain level now: 0 - Additonal information Additional information: Patient is an 88-year-old male who presents to the emergency department stating that he was seen at the walk-in clinic yesterday and told he has a pleural effusion and that he should come to the emergency department to have it drained today. Patient has a history of multiple myeloma. He states that he was told he had fluid around the lung on a recent PET scan. He is on Pradaxa for atrial fibrillation. No fevers. No chills. He has been fatigued for several months. He states he does become short of breath with exertion, but this is not significantly different from the past several weeks. No chest pain. No fevers. No cough. Has never had a pleural effusion before. Review of Systems Constitutional: denies: Fever, Chills Nose: denies: Rhinorrhea / runny nose, Congestion Throat: denies: Sore throat Cardiac: denies: Palpitations Respiratory: denies: Cough, Wheezing GI: denies: Vomiting, Diarrhea Skin: denies: Rash Musculoskeletal: denies: Neck pain, Back pain Neurologic: denies: Headache PD PAST MEDICAL HISTORY - Past Medical History Cardiovascular: Hypertension, Peripheral Vascular Disease, Atrial fibrillation Respiratory: None, Other Endocrine/Autoimmune: Type 2 diabetes GI: GERD : Benign prostate hypertrophy HEENT: Chronic vision loss Psych: None Musculoskeletal: Osteoarthritis Derm: Other - Past Surgical History Ortho: Hip replacement - Present Medications Home Medications: Ambulatory Orders Medication Instructions Recorded Confirmed Atorvastatin Calcium [Lipitor] 10 mg PO HS 12/08/13 02/05/23 Dabigatran [Pradaxa] 150 mg PO BID 12/08/13 02/05/23 Amlodipine Besylate 10 mg PO DAILY 01/28/14 02/05/23 Losartan [Cozaar] 50 mg PO DAILY 01/09/16 02/05/23 Metoprolol Tartrate [Lopressor] 100 mg PO DAILY 01/09/16 02/05/23 Multivitamin [Theragran] 1 each PO DAILY 01/09/16 02/05/23 metFORMIN [Glucophage] 1 tab PO BID 05/17/20 02/05/23 Amox/Clav 875/125 [Augmentin 1 tablet PO Q12H 10 Days #20 tablet 11/28/22 02/05/23 875/125 Tab] - Allergies Allergies/Adverse Reactions: Allergies Allergy/AdvReac Type Severity Reaction Status Date / Time No Known Drug Allergies Allergy Verified 02/12/23 10:48 - Social History Does the pt smoke?: No Smoking Status: Never smoker Does the pt drink ETOH?: No Does the pt have substance abuse?: No - Immunizations Immunizations are current?: Yes - POLST Patient has POLST: No PD ED PE NORMAL - Vitals Vital signs reviewed: Yes - General General: Alert and oriented X 3, No acute distress - HEENT HEENT: PERRL, Moist mucous membranes - Neck Neck: Supple, no meningeal sign - Cardiac Cardiac: Other (Irregular) - Respiratory Respiratory: No respiratory distress (Diminished breath sounds on the right side), Clear bilaterally - Abdomen Abdomen: Soft, Non tender, Non distended - Derm Derm: Warm and dry - Neuro Neuro: Alert and oriented X 3 - Psych Psych: Normal mood, Normal affect Results - Vitals Vitals: Vital Signs - 24 hr 02/12/23 02/12/23 10:44 12:26 Temperature 36.4 C L Heart Rate 71 67 Respiratory 20 20 Rate Blood Pressure 136/59 H 140/72 H O2 Saturation 92 92 Oxygen O2 Source [] Nasal cannula O2 Source Room air - EKG (time done) 1051 EKG releavant findings:: EKG personally interpreted by author of this note. Relevant findings are: Rate: Rate (enter#) (59) Rhythm: Atrial fibrillation Massey: Normal QRS: Normal Ischemia: Non specific changes - Labs Labs: Laboratory Tests 02/12/23 02/12/23 11:23 11:23 WBC 5.4 RBC 3.25 L Hgb 11.2 L Hct 32.5 L MCV 100.0 H MCH 34.5 H MCHC 34.5 RDW 15.9 H Plt Count 118 L MPV 10.6 Neut # (Auto) 4.0 Lymph # (Auto) 0.8 L [place] # (Auto) 0.5 Eos # (Auto) 0.0 Baso # (Auto) 0.0 Absolute Nucleated RBC 0.00 Nucleated RBC % 0.0 Sodium 132 L Potassium 3.7 Chloride 103 Carbon Dioxide 24 Anion Gap 5.0 L BUN 27 H Creatinine 1.1 Estimated GFR (MDRD) 63 L Glucose 170 H Calcium 9.9 PD Medical Decision Making - ED course Complexity details: reviewed results, re-evaluated patient, considered differential, d/w patient, d/w family Reviewed Lab Results: CBC shows a mild chronic anemia, also chronic thrombocytopenia. Mild hypona tremia, 132. This is close to his normal baseline of 1 33-1 34. No other significant abnormalities. ED course: Patient with a known right-sided pleural effusion. He is not in respiratory distress. He is not hypoxic. He is speaking in full sentences without difficulty. As he is thrombocytopenic and anticoagulated with Pradaxa, this would be safer performed as an elective procedure when his Pradaxa can be stopped. As he is in no emergent distress today, I spoke with Amira Case, covering for the patient's PCP, Dr. Ennis, she will place a referral to interventional radiology. The patient will return sooner if he worsens. The patient is only on Pradaxa for atrial fibrillation. Patient and family counseled regarding signs and symptoms for which I believe and urgent re- evaluation would be necessary. Patient with good understanding of and agreement to plan and is comfortable going home at this time This document was made in part using voice recognition software. While efforts are made to proofread this document, sound alike and grammatical errors may occur. Departure - Departure Disposition: 01 Home, Self Care Clinical Impression: Pleural effusion, Pancytopenia Multiple myeloma Qualifiers: Multiple myeloma remission status: not in remission Qualified Code(s): C90.00 - Multiple myeloma not having achieved remission Condition: Good Instructions: ED Effusion Pleural Follow-Up: Matthew Ennis MD [Primary Care Provider] - Comments: As we discussed, you will need to stop the pradaxa for your thoracentesis. Usually this needs to be stopped for at least 2-[address] Ennis will place the referral for you. There will need to be labs ordered as well on the fluid from around your lungs. Radiology will tell you how long you need to be off the pradaxa before your procedure. I spoke with Amira Case today and she is placing the referral. Discharge Date/Time: 02/12/23 13:03
== END 2023-02-12 13:03 | disposition home or self-care (01) ==
LOC: ED 10:30
DX: J90 Pleural effusion, not elsewhere classified (principal); C90.00 Multiple myeloma not having achieved remission; D61.818 Other pancytopenia; I10 Essential (primary) hypertension; E11.9 Type 2 diabetes mellitus without complications; Z79.84 Long term (current) use of oral hypoglycemic drugs; I48.91 Unspecified atrial fibrillation; Z79.01 Long term (current) use of anticoagulants
CPT/HCPCS: 36415; 80048; 85025; 93005; 99284

== ENCOUNTER 2023-02-19 08:45 | Outpatient (CLI) | payer MEDICARE, OTHER ==
[2023-02-19 09:40] LABS: INR 1.5 (0.8-1.2); PT - PROTHROMBIN TIME 16.1 secs (9.9-12.6)
[2023-02-19 09:47] LABS: PARTIAL THROMBOPLASTIN TIME 36.2 secs (24.9-33.3)
[2023-02-19] MEDS ORDERED: LIDOCAINE-MPF 1% 5 ML VIAL ONE (10:24)
--- NOTE | 2023-02-19 11:04 | XRAY Report ---
PROCEDURE: Post Thoracentesis 1V CXR INDICATIONS: POST THORACENTESIS TECHNIQUE: One view of the chest was acquired. COMPARISON: 02/11/2023 FINDINGS: Surgical changes and devices: None. Lungs and pleura: Mild interval decrease in size of large right pleural effusion post thoracentesis. No pneumothorax post intervention. The left lung demonstrates mild perihilar interstitial thickening , similar compared to the prior study. No left pleural effusion. Mediastinum: Mediastinal contours appear stable. Heart size is borderline enlarged, stable. Bones and chest wall: No suspicious bony lesions. Overlying soft tissues appear unremarkable. IMPRESSION: 1. No right pneumothorax post right thoracentesis. 2. Mild decrease in size of large right pleural effusion. 3. No other changes compared to the prior x-ray. Reviewed by: Yanique Wheeler MD on 02/19/2023 11:03 AM PDT Approved by: Yanique Wheeler MD on 02/19/2023 11:03 AM PDT Station ID: [id number]
[2023-02-19] MEDS ORDERED: LIDOCAINE-MPF 1% 5 ML VIAL TD ONE (13:22)
--- NOTE | 2023-02-19 16:59 | Ultrasound Report ---
PROCEDURE: Thoracentesis Puncture INDICATIONS: PLEURAL EFFUSION TECHNIQUE: The indications, alternatives, benefits, risks, and complications of the procedure were explained to the patient. Written informed consent was obtained and placed in the chart. The chest was examined sonographically, and an appropriate site was chosen for thoracentesis. The skin was prepared and cisco ped in the usual sterile fashion, and 1% lidocaine was infiltrated from the skin down through the ple ural surface. A 19-gauge catheter-covered needle was then introduced into the pleural space, the cat heter was advanced and the needle was withdrawn, and thereafter pleural fluid was aspirated. The cat heter was then removed and a dressing was applied. COMPARISON: Chest x-ray 02/11/2023 FINDINGS: Access site: Right hemithorax. Needle: One-Step centesis catheter with introducer needle. Fluid volume and description: 1.2 L clear yellow pleural fluid. Fluid sent for diagnostic testing: Yes. Medications: 1% lidocaine for local anaesthesia. Complications: None; post-procedural chest radiograph is pending to assess for pneumothorax. IMPRESSION: Successful ultrasound-guided thoracentesis. Reviewed by: Yanique Wheeler MD on 02/19/2023 4:58 PM PDT Approved by: Yanique Wheeler MD on 02/19/2023 4:58 PM PDT Station ID: [id number]
== END 2023-02-19 08:46 | disposition home or self-care (01) ==
LOC: LAB 08:45 → DI 08:46
PROVIDERS: ATTEND Nurse Practitioner
DX: J90 Pleural effusion, not elsewhere classified (principal)
CPT/HCPCS: 32555; 36415; 85610; 85730

== ENCOUNTER 2023-02-22 12:15 | Outpatient (CLI) | payer MEDICARE, OTHER ==
[2023-02-22 12:35] LABS: BASOPHILS % (AUTO) 0.7 %; EOSINOPHILS % (AUTO) 0.5 %; HCT - HEMATOCRIT 32.1 % (42.0-52.0); HGB - HEMOGLOBIN 10.7 g/dL (14.0-18.0); LYMPHOCYTES # (AUTO) 0.6 10^3/uL (1.5-3.5); LYMPHOCYTES % (AUTO) 13.7 %; MEAN CORPUSCULAR HEMOGLOBIN 34.1 pg (27.0-31.0); MEAN CORPUSCULAR HGB CONC 33.3 g/dL (32.0-36.0); MEAN CORPUSCULAR VOLUME 102.2 fL (80.0-94.0); MEAN PLATELET VOLUME 10.5 fL (7.4-11.4); MONOCYTES # (AUTO) 0.6 10^3/uL (0.0-1.0); NEUTROPHILS # (AUTO) 3.1 10^3/uL (1.5-6.6); NEUTROPHILS % (AUTO) 71.9 %; PLT - PLATELET COUNT 131 10^3/uL (130-450); RED BLOOD COUNT 3.14 10^6/uL (4.70-6.10); RED CELL DISTRIBUTION WIDTH 16.5 % (12.0-15.0); WHITE BLOOD COUNT 4.3 x10^3/uL (4.8-10.8)
[2023-02-22 13:02] LABS: THYROID STIMULATING HORMONE 0.34 uIU/mL (0.34-5.60)
[2023-02-22 13:27] LABS: ALBUMIN 2.9 g/dL (3.2-5.5); ALBUMIN/GLOBULIN RATIO 0.4 (1.0-2.2); BILIRUBIN,TOTAL 1.9 mg/dL (0.2-1.0); CALCIUM 9.6 mg/dL (8.5-10.3); POTASSIUM 4.3 mmol/L (3.5-5.0); TOTAL PROTEIN 9.4 g/dL (6.7-8.2)
== END 2023-02-22 12:16 | disposition home or self-care (01) ==
LOC: LAB 12:15
PROVIDERS: ATTEND Internal Medicine
DX: I50.20 Unspecified systolic (congestive) heart failure (principal); C90.00 Multiple myeloma not having achieved remission
CPT/HCPCS: 36415; 80053; 83615; 83880; 84443; 85025

== ENCOUNTER 2023-03-05 09:37 | Outpatient (CLI) | payer MEDICARE, OTHER ==
[~2023-03-05 09:37] MED LIST: LIDOCAINE-MPF 1% 5 ML VIAL ONE
[2023-03-05] MEDS ORDERED: LIDOCAINE-MPF 1% 5 ML VIAL TD ONE (10:56)
--- NOTE | 2023-03-05 11:09 | Ultrasound Report ---
PROCEDURE: Thoracentesis Puncture INDICATIONS: RIGHT PLEURAL EFFUSION TECHNIQUE: The indications, alternatives, benefits, risks, and complications of the procedure were explained to the patient. Written informed consent was obtained and placed in the chart. The chest was examined sonographically, and an appropriate site was chosen for thoracentesis. The skin was prepared and cisco ped in the usual sterile fashion, and 1% lidocaine was infiltrated from the skin down through the ple ural surface. A 19-gauge catheter-covered needle was then introduced into the pleural space, the cat heter was advanced and the needle was withdrawn, and thereafter pleural fluid was aspirated. The cat heter was then removed and a dressing was applied. COMPARISON: None. FINDINGS: Access site: Right hemithorax. Needle: One-Step centesis catheter with introducer needle. Fluid volume and description: Serous, 1.26 L Fluid sent for diagnostic testing: Yes Medications: 1% lidocaine for local anaesthesia. Complications: None; post-procedural chest radiograph is pending to assess for pneumothorax. IMPRESSION: Successful ultrasound-guided thoracentesis. Reviewed by: Jose Borjas MD on 03/05/2023 11:08 AM PDT Approved by: Jose Borjas MD on 03/05/2023 11:08 AM PDT Station ID: [id number]
--- NOTE | 2023-03-05 11:09 | XRAY Report ---
PROCEDURE: Post Thoracentesis 1V CXR INDICATIONS: POST THROACENTESIS TECHNIQUE: One view of the chest was acquired. COMPARISON: 02/19/2023 FINDINGS: Surgical changes and devices: None. Lungs and pleura: Post right thoracentesis. Mild to moderate effusion and underlying opacity persist s. No radiographic pneumothorax. Mediastinum: Borderline large heart. Bones and chest wall: No suspicious bony lesions. Overlying soft tissues appear unremarkable. IMPRESSION: Mild to moderate persistent effusion and underlying opacity following thoracentesis. No pneumothorax. Reviewed by: Jose Borjas MD on 03/05/2023 11:07 AM PDT Approved by: Jose Borjas MD on 03/05/2023 11:07 AM PDT Station ID: [id number]
[2023-03-05 11:48] LABS: CC,BF RBC < 3000 /mm^3; CC,BF WBC 241 /mm^3
[2023-03-05 12:03] LABS: BASOPHILS %,BODY FLUID 0 %; BLASTS %,BF 0; EOSINOPHILS %,BODY FLUID 0 %; IMMATURE %,BF 0; NEUTROPHILS %, BF 0 %; OTHER CELLS %,BODY FLUID 0 %
[2023-03-05 12:04] LABS: BF CLARITY CLEAR; BF COLOR YELLOW; BF SOURCE PLEURAL
[2023-03-06 06:10] LABS: pH BODY FLUID 7.6 (Not Estab.)
[2023-03-06 11:11] LABS: PROTEIN BODY FLUID 5.6 g/dL (.)
== END 2023-03-05 09:38 | disposition home or self-care (01) ==
LOC: DI 09:37
PROVIDERS: ATTEND Internal Medicine
DX: J90 Pleural effusion, not elsewhere classified (principal)
CPT/HCPCS: 32555; 81599; 82150; 82945; 83615; 83986; 84157; 84478; 87070; 87205; 89051

== ENCOUNTER 2023-03-12 14:45 | Outpatient (CLI) | payer MEDICARE, OTHER ==
[2023-03-12 18:05] LABS: CALCIUM 10.3 mg/dL (8.5-10.3); CREATININE 1.1 mg/dL (0.6-1.2); MAGNESIUM 1.9 mg/dL (1.7-2.8); POTASSIUM 3.9 mmol/L (3.5-5.0)
== END 2023-03-12 14:46 | disposition home or self-care (01) ==
LOC: LAB.N 14:45
PROVIDERS: ATTEND Internal Medicine Cardiovascular Disease
DX: I50.30 Unspecified diastolic (congestive) heart failure (principal); I48.20 Chronic atrial fibrillation, unspecified; E87.1 Hypo-osmolality and hyponatremia; R06.02 Shortness of breath; E85.4 Organ-limited amyloidosis; I43 Cardiomyopathy in diseases classified elsewhere
CPT/HCPCS: 36415; 80048; 82784; 83735; 83880; 83930; 84155; 84165; 86334

== ENCOUNTER 2023-04-02 12:46 | Outpatient (CLI) | payer MEDICARE, OTHER ==
--- NOTE | 2023-04-03 09:22 | Ultrasound Report ---
PROCEDURE: Head or Neck Soft Tissue INDICATIONS: THYROID NODULES TECHNIQUE: Real-time scanning was performed of the thyroid gland, with image documentation. COMPARISON: None FINDINGS: Right: Thyroid lobe measures 7.4 x 2.3 x 3.0 cm, and is heterogeneous in echotexture. Left: Thyroid lobe measures 8.4 x 5.1 x 3.2 cm, and is heterogeneous in echotexture. Isthmus: 9 mm thick. Nodule number: 1 Location: Right lateral Size: 1.2 x 0.8 x 0.7 cm. Composition: Mixed solid and cystic. Echogenicity: Hypoechoic. Shape: wider than tall. Margins: Smooth (0 points). Echogenic foci: None (0 points). Total points: 3 ACR TI-RADS category: 3. Nodule number: 2 Location: Left lateral Size: 2.4 x 1.3 cm. Composition: Solid. Echogenicity: Hyperechoic. Shape: wider than tall. Margins: Ill-defined. Echogenic foci: Macrocalcification). Total points: 5 ACR TI-RADS category: 4. IMPRESSION: 1. Thyromegaly and heterogeneous thyroid echotexture suggesting multinodular goiter. 2. Two thyroid nodules are present. Consider fine-needle aspiration biopsy of the left inferior thyro id nodule. ACR TI-RADS definitions and recommendations: TI-RADS 1 (benign): 0 points. FNA not needed. TI-RADS 2 (not suspicious): 2 points. FNA not needed. TI-RADS 3 (mildly suspicious): 3 points. "FNA if 2.5 cm or larger, follow up if 1.5 cm or larger (at 1, 3, and 5 years). TI-RADS 4 (moderately suspicious): 4-6 points. "FNA if 1.5 cm or larger, follow up if 1 cm or larger (at 1, 2, 3, and 5 years). TI-RADS 5 (highly suspicious): 7 points or more. "FNA if 1 cm or larger, follow up if 0.5 cm or larger (every year for 5 years). Reviewed by: Clinton Acevedo MD on 04/03/2023 9:21 AM PDT Approved by: Clinton Acevedo MD on 04/03/2023 9:21 AM PDT Station ID: [id number]
[2023-04-03 14:09] LABS: OSMOLALITY 296 mOsmol/kg (280-301)
[2023-04-04 15:09] LABS: A/G RATIO 0.7 (0.7-1.7); ALBUMIN 3.8 g/dL (2.9-4.4); ALPHA-1-GLOBULIN 0.4 g/dL (0.0-0.4); ALPHA-2-GLOBULIN 0.7 g/dL (0.4-1.0); BETA GLOBULIN 0.8 g/dL (0.7-1.3); GAMMA GLOBULIN 3.9 g/dL (0.4-1.8); GLOBULIN TOTAL 5.8 g/dL (2.2-3.9); IMMUNOGLOBULIN A (IGA) 29 mg/dL (61-437); IMMUNOGLOBULIN G (IGG) 6249 mg/dL (603-1613); IMMUNOGLOBULIN M (IGM) 16 mg/dL (15-143); M-SPIKE 3.5 g/dL (Not Observed); PROTEIN TOTAL 9.6 g/dL (6.0-8.5)
== END 2023-04-02 12:47 | disposition home or self-care (01) ==
LOC: DI 12:46
PROVIDERS: ATTEND Physician Assistant
DX: E04.2 Nontoxic multinodular goiter (principal); I48.20 Chronic atrial fibrillation, unspecified; E87.1 Hypo-osmolality and hyponatremia; I43 Cardiomyopathy in diseases classified elsewhere; E85.4 Organ-limited amyloidosis
CPT/HCPCS: 36415; 81599; 82784; 83930; 84155; 84165; 84443; 86334

== ENCOUNTER 2023-05-10 09:39 | Outpatient (CLI) | payer MEDICARE, OTHER ==
[2023-05-10] MEDS ORDERED: LIDOCAINE-MPF 1% 5 ML VIAL ONE (10:11)
[2023-05-10] MEDS ORDERED: LIDOCAINE-MPF 1% 5 ML VIAL TD ONE (11:12)
--- NOTE | 2023-05-10 11:22 | Ultrasound Report ---
PROCEDURE: FNA Bx w/US Gdn 1st Les INDICATIONS: THYROID NODULES TECHNIQUE: The indications, alternatives, benefits, risks, and complications of the procedure were explained to the patient. Written informed consent was obtained and placed in the chart. The area of interest wa s examined sonographically and a site was chosen for ultrasound guided percutaneous sampling. The sk in was prepared and draped in the usual fashion, and anesthetized with 1% lidocaine infiltrated from the skin down to the lesion. Multiple passes were then performed, with [facility]. A bandage was applied to the area of access at completion of t he study. COMPARISON: Thyroid ultrasound, 04/02/2023. FINDINGS: Location(s) of lesion(s) sampled: Left inferior pole nodule [place]: 25 gauge hypodermic needles. Number of passes: 6 Medications: 1% lidocaine for local anaesthesia. Complications: None. IMPRESSION: Successful ultrasound-guided left inferior thyroid nodule fine needle aspiration biopsy, with cytolog y results pending. Reviewed by: Clinton Acevedo MD on 05/10/2023 11:21 AM PDT Approved by: Clinton Acevedo MD on 05/10/2023 11:21 AM PDT Station ID: [id number]
== END 2023-05-10 09:40 | disposition home or self-care (01) ==
LOC: DI 09:39
PROVIDERS: ATTEND Internal Medicine
DX: E04.2 Nontoxic multinodular goiter (principal)
CPT/HCPCS: 10005

== ENCOUNTER 2023-05-24 15:09 | Outpatient (CLI) | payer MEDICARE, OTHER ==
[2023-05-24] MEDS ORDERED: LIDOCAINE-MPF 1% 5 ML VIAL TD ONE (16:50)
--- NOTE | 2023-05-24 17:10 | Ultrasound Report ---
PROCEDURE: Thoracentesis Puncture INDICATIONS: RIGHT PLEURAL EFFUSION TECHNIQUE: The indications, alternatives, benefits, risks, and complications of the procedure were explained to the patient. Written informed consent was obtained and placed in the chart. The chest was examined sonographically, and an appropriate site was chosen for thoracentesis. The skin was prepared and cisco ped in the usual sterile fashion, and 1% lidocaine was infiltrated from the skin down through the ple ural surface. A 19-gauge catheter-covered needle was then introduced into the pleural space, the cat heter was advanced and the needle was withdrawn, and thereafter pleural fluid was aspirated. The cat heter was then removed and a dressing was applied. COMPARISON: None. FINDINGS: Access site: Right hemithorax. Needle: One-Step centesis catheter with introducer needle. Fluid volume and description: 1500 cc clear refugio fluid Fluid sent for diagnostic testing: None Medications: 1% lidocaine for local anaesthesia. Complications: None. IMPRESSION: Successful ultrasound-guided thoracentesis. Postprocedure x-ray demonstrates no evidenc e of pneumothorax. Reviewed by: Andrés Maciel on 05/24/2023 5:09 PM PDT Approved by: Andrés Maciel on 05/24/2023 5:09 PM PDT Station ID: [id number]
--- NOTE | 2023-05-24 19:26 | XRAY Report ---
PROCEDURE: Post Thoracentesis 1V CXR INDICATIONS: POST THORA CHEST XRAY TECHNIQUE: One view of the chest was acquired. COMPARISON: None. FINDINGS: Surgical changes and devices: None. Lungs and pleura: Moderate right pleural effusion and small left pleural effusion. No pneumothorax. Mediastinum: Mediastinal contours appear normal. Heart size is normal. Bones and chest wall: No suspicious bony lesions. Overlying soft tissues appear unremarkable. IMPRESSION: No pneumothorax. Moderate right and small left pleural effusions. Reviewed by: Erich Johnson on 05/24/2023 7:24 PM PDT Approved by: Erich Johnson on 05/24/2023 7:24 PM PDT Station ID: [id number]
== END 2023-05-24 15:10 | disposition home or self-care (01) ==
LOC: DI 15:09
PROVIDERS: ATTEND Registered Nurse
DX: J90 Pleural effusion, not elsewhere classified (principal)
CPT/HCPCS: 32555

== ENCOUNTER 2023-06-03 10:05 | Outpatient (CLI) | payer MEDICARE, OTHER ==
--- NOTE | 2023-06-03 15:45 | XRAY Report ---
PROCEDURE: Chest 2 View X-Ray INDICATIONS: PLEURAL EFFUSION,RIGHT TECHNIQUE: 2 views of the chest were acquired. COMPARISON: Chest radiograph 05/24/2023, 05/23/2023 FINDINGS: Surgical changes and devices: None. Lungs and pleura: Large right pleural effusion, decreased compared to the most recent chest radiogra ph. Nonspecific bibasilar opacities persist. No pneumothorax identified. Mediastinum: Cardiac silhouette is partially obscured, mediastinal and hilar contours appears simila r to before. Bones and chest wall: No suspicious bony lesions. Overlying soft tissues appear unremarkable. IMPRESSION: Large right pleural effusion, increased compared to the most recent chest radiograph. Reviewed by: Lucien Calle MD on 06/03/2023 3:44 PM PDT Approved by: Lucien Calle MD on 06/03/2023 3:44 PM PDT Station ID: [id number]
== END 2023-06-03 10:06 | disposition home or self-care (01) ==
LOC: DI 10:05
PROVIDERS: ATTEND Internal Medicine
DX: J90 Pleural effusion, not elsewhere classified (principal)

== ENCOUNTER 2023-06-13 14:25 | Outpatient (CLI) | payer MEDICARE, OTHER ==
[2023-06-13 17:57] LABS: ABSOLUTE RETICS # AUTO 0.072 10^6/uL (0.020-0.110); RED BLOOD COUNT 2.92 10^6/uL (4.70-6.10); RETICULOCYTE COUNT % (AUTO) 2.46 % (0.5-2.3)
[2023-06-14 18:09] LABS: FECAL OCCULT BLOOD (FIT) POSITIVE (NEGATIVE)
== END 2023-06-13 14:26 | disposition home or self-care (01) ==
LOC: LAB.N 14:25
PROVIDERS: ATTEND Internal Medicine Cardiovascular Disease
DX: D53.9 Nutritional anemia, unspecified (principal); E87.1 Hypo-osmolality and hyponatremia
CPT/HCPCS: 36415; 82274; 82607; 82746; 83540; 83930; 84466; 85045

== ENCOUNTER 2023-06-17 13:23 | Outpatient (CLI) | payer MEDICARE, OTHER ==
--- NOTE | 2023-06-17 15:32 | XRAY Report ---
PROCEDURE: Post Thoracentesis 1V CXR INDICATIONS: Post Thoracentesis X Ray for Right Pleural Effusion TECHNIQUE: One view of the chest was acquired. COMPARISON: Chest x-ray 06/03/2023 FINDINGS: Surgical changes and devices: None. Lungs and pleura: Moderate right pleural effusion is mildly decreased compared to prior. No pneumoth orax. Adjacent atelectasis. Mediastinum: Mediastinal contours appear normal. Heart size is normal. Bones and chest wall: No suspicious bony lesions. Overlying soft tissues appear unremarkable. IMPRESSION: Moderate right pleural effusion is mildly decreased compared to prior. No pneumothorax. Reviewed by: Aston Jensen MD on 06/17/2023 3:30 PM PDT Approved by: Aston Jensen MD on 06/17/2023 3:30 PM PDT Station ID: [id number]
--- NOTE | 2023-06-17 15:50 | Ultrasound Report ---
PROCEDURE: Thoracentesis Puncture INDICATIONS: PLEURAL EFFUSION TECHNIQUE: The indications, alternatives, benefits, risks, and complications of the procedure were explained to the patient. Written informed consent was obtained and placed in the chart. The chest was examined sonographically, and an appropriate site was chosen for thoracentesis. The skin was prepared and cisco ped in the usual sterile fashion, and 1% lidocaine was infiltrated from the skin down through the ple ural surface. A 19-gauge catheter-covered needle was then introduced into the pleural space, the cat heter was advanced and the needle was withdrawn, and thereafter pleural fluid was aspirated. The cat heter was then removed and a dressing was applied. COMPARISON: None. FINDINGS: Access site: Right hemithorax. Needle: One-Step centesis catheter with introducer needle. Fluid volume and description: 1.5 L of clear yellow fluid Fluid sent for diagnostic testing: None Medications: 1% lidocaine for local anaesthesia. Complications: None IMPRESSION: Successful ultrasound-guided thoracentesis. Reviewed by: Aston Jensen MD on 06/17/2023 3:48 PM PDT Approved by: Aston Jensen MD on 06/17/2023 3:48 PM PDT Station ID: [id number]
== END 2023-06-17 13:24 | disposition home or self-care (01) ==
LOC: DI 13:23
PROVIDERS: ATTEND Internal Medicine
DX: J90 Pleural effusion, not elsewhere classified (principal); I43 Cardiomyopathy in diseases classified elsewhere; R19.5 Other fecal abnormalities
CPT/HCPCS: 32555; 36415; 85027

== ENCOUNTER 2023-06-24 14:37 | Outpatient (CLI) | payer MEDICARE, OTHER ==
--- NOTE | 2023-06-24 16:40 | XRAY Report ---
PROCEDURE: Chest 2 View X-Ray INDICATIONS: PLEURAL EFFUSION TECHNIQUE: 2 views of the chest were acquired. COMPARISON: Chest x-ray 06/17/2023 FINDINGS: Surgical changes and devices: None. Lungs and pleura: Moderate right effusion minimally progressive compared to prior exam. Mediastinum: Mediastinal contours appear normal. Heart size is enlarged. Bones and chest wall: No suspicious bony lesions. Overlying soft tissues appear unremarkable. IMPRESSION: Moderate right effusion slightly progressive. Reviewed by: Kamila Magallon MD on 06/24/2023 4:38 PM PDT Approved by: Kamila Magallon MD on 06/24/2023 4:38 PM PDT Station ID: [id number]
== END 2023-06-24 14:38 | disposition home or self-care (01) ==
LOC: DI 14:37
PROVIDERS: ATTEND Internal Medicine
DX: J90 Pleural effusion, not elsewhere classified (principal); E85.4 Organ-limited amyloidosis

== ENCOUNTER 2023-06-28 19:50 | Emergency (ER) | payer MEDICARE, OTHER ==
[2023-06-28 20:03] VITALS: BP 129/63; O2SAT 94
--- OUTSIDE RECORDS SUMMARY | 2023-06-28 20:11 | EXTERNAL MEDICAL SUMMARY RPT | Continuity of Care Document ---
Author Name Unknown Address [address] [place] [address] Phone Organization [facility] Address [address] [place] [address] Phone Care Team Providers Care Joiner Helper Name Role Phone Matthew Cantrell Unavailable Unavailable Medications date description facility 2023-04-30 00:00 [facility] Problems date description facility 2023-04-24 09:03 Dysphagia, unspecified [facility] Procedures date description facility 2023-04-24 00:00 Modified barium swal low with fluoroscopic video recording [facility] Results/Labs test date facility value unit notes Social History date description facility 2023-04-30 00:00 Never smoked tobacco (finding) [facility] Vital Signs date measurement value units 2023-04-30 00:00 BP_diastolic 55 mmHg 2023-04-30 00:00 BP_systolic 127 mmHg 2023-04-30 00:00 heart_rate 72 /min 2023-04-30 00:00 o2_saturation 95 % 2023-04-30 00:00 respiration_rate 16 /min
[2023-06-28] MEDS ORDERED: valACYclovir 500 MG TABLET PO STA (21:28)
--- NOTE | 2023-06-28 21:31 | ED Physician Documentation ---
History of Present Illness - Stated complaint Stated Complaint: BACK RASH - Chief complaint Chief Complaint: General - History obtained from History obtained from: Patient - Additonal information Additional information: 88-year-old gentleman undergoing chemotherapy for multiple myeloma presents with a rash that has mild pain on the right side of the neck starting tonight. PD PAST MEDICAL HISTORY - Past Medical History Cardiovascular: Hypertension, Peripheral Vascular Disease, Atrial fibrillation Respiratory: None, Other Endocrine/Autoimmune: Type 2 diabetes GI: GERD : Benign prostate hypertrophy HEENT: Chronic vision loss Psych: None Musculoskeletal: Osteoarthritis Derm: Other - Past Surgical History Ortho: Hip replacement - Present Medications Home Medications: Ambulatory Orders Medication Instructions Recorded Confirmed Atorvastatin Calcium [Lipitor] 10 mg PO HS 12/08/13 06/25/23 Dabigatran [Pradaxa] 150 mg PO BID 12/08/13 06/25/23 Amlodipine Besylate 10 mg PO DAILY 01/28/14 06/25/23 Losartan [Cozaar] 50 mg PO DAILY 01/09/16 06/25/23 Metoprolol Tartrate [Lopressor] 100 mg PO DAILY 01/09/16 06/25/23 Multivitamin [Theragran] 1 each PO DAILY 01/09/16 06/25/23 metFORMIN [Glucophage] 1 tab PO BID 05/17/20 06/25/23 Amox/Clav 875/125 [Augmentin 1 tablet PO Q12H 10 Days #20 tablet 11/28/22 06/25/23 875/125 Tab] Ondansetron HCl 4 mg PO Q6HR PRN #30 tablet 06/03/23 06/25/23 dexAMETHasone [Decadron] 20 mg PO UD #15 tablet 06/03/23 06/25/23 Potassium Chloride 16 meq PO DAILY 06/11/23 06/25/23 Torsemide 10 mg PO DAILY 06/11/23 06/25/23 HYDROcod/ACETAM 5/325 [[place] 5/325] 1 - 2 tab PO Q6H PRN #15 tablet 06/28/23 Valacyclovir HCl [Valtrex] 1,000 mg PO TID #30 tablet 06/28/23 - Allergies Allergies/Adverse Reactions: Allergies Allergy/AdvReac Type Severity Reaction Status Date / Time No Known Drug Allergies Allergy Verified 02/12/23 10:48 - Social History Does the pt smoke?: No Smoking Status: Never smoker Does the pt drink ETOH?: No Does the pt have substance abuse?: No - Immunizations Immunizations are current?: Yes - POLST Patient has POLST: No PD ED PE NORMAL - Vitals Vital signs reviewed: Yes - General General: Alert and oriented X 3, No acute distress - HEENT HEENT: PERRL, EOMI - Neck Neck: Other (He has shingles on the right side of the neck trending over towards the sternocleidomastoid) - Neuro Neuro: Alert and oriented X 3, Normal speech Results - Vitals Vitals: Vital Signs - 24 hr 06/28/23 19:52 Temperature 36.8 C Heart Rate 97 Respiratory 18 Rate Blood Pressure 129/63 O2 Saturation 94 Oxygen O2 Source [Without Activity] Nasal cannula O2 Source Room air PD Medical Decision Making - ED course Complexity details: other (PIR completed.) ED course: He has shingles. He is immunocompromise so definitely want to use antivirals. I considered prednisone, but since prednisone is mostly for the prevention of postherpetic neuralgia and his pain is mild at this point decided to forego since he is getting treatment for multiple myeloma and this may interact. Departure - Departure Disposition: Home, Self Care Clinical Impression: Shingles Qualifiers: Herpes zoster complications: without complications Qualified Code(s): B02.9 - Zoster without complications Condition: Good Record reviewed to determine appropriate education?: Yes Instructions: ED Shingles Prescriptions: HYDROcod/ACETAM 5/325 [[place] 5/325] 1 - 2 tab PO Q6H PRN #15 tablet PRN Reason: Pain Valacyclovir HCl [Valtrex] 1,000 mg PO TID #30 tablet Comments: I sent your prescriptions electronically to [facility] in [place]. Make sure to note with your oncologist that you were seen today for shingles and we have started antiviral medications. Return for new or worsening symptoms. Follow-up with your oncologist Saturday as per usual. I am prescribing a short course of narcotic pain medication for you. These are potentially dangerous and addictive medications that should be used carefully. These medications may constipate you. Take an wyga-anm-fotntqt stool softener (docusate) twice daily with plenty of water while taking these medications. If you go 24 hours without a bowel movement, take llfv-lbx-ryjlkgw miralax, per package instructions. Do not drink or drive while taking these medications. If you received narcotic or sedating medications while in the emergency department, do not drive for 24 hours. Store this medication in a safe, secure place and out of reach of children. It is a violation of federal law to give or sell this medication to another person or to use in a manner other than prescribed. The ED will not refill narcotic prescriptions, including prescriptions lost or stolen. To dispose of unwanted medications: 1. [facility] provides a [facility] box for medication in pill form only (no liquids) 8:00 am to 4:30 p.m. Saturday-Saturday in the lobby of the [facility] [place], [address] Empty pills into ziplock bag before disposal. Call [phone] for information. 2.[employer] is a free service available to all [facility] residents. Go to [email or web address] Note that many narcotic pain relievers also contain Tylenol/acetaminophen. Please ensure that your total dose of acetaminophen from all sources does not exceed 3 g (3000 mg) per day. Forms: PCP List
== END 2023-06-28 21:41 | disposition home or self-care (01) ==
LOC: ED 19:50
DX: B02.9 Zoster without complications (principal); I10 Essential (primary) hypertension; I48.91 Unspecified atrial fibrillation; E11.9 Type 2 diabetes mellitus without complications; Z79.84 Long term (current) use of oral hypoglycemic drugs
CPT/HCPCS: 99282; 99283; A9270

== ENCOUNTER 2023-07-12 12:05 | Outpatient (CLI) | payer MEDICARE, OTHER ==
[2023-07-12] MEDS ORDERED: LIDOCAINE-MPF 1% 5 ML VIAL ONE (12:28)
--- NOTE | 2023-07-12 13:15 | XRAY Report ---
PROCEDURE: Post Thoracentesis 1V CXR INDICATIONS: Right Sided Pleural Effusion TECHNIQUE: One view of the chest was acquired. COMPARISON: Ultrasound thoracentesis, 07/12/2023. Chest x-ray, 06/24/2023. FINDINGS: Surgical changes and devices: None. Lungs and pleura: No pneumothorax. Right pleural effusion has decreased. Mediastinum: Mediastinal contours appear normal. Heart size is normal. Bones and chest wall: No suspicious bony lesions. Overlying soft tissues appear unremarkable. IMPRESSION: No pneumothorax. Decreased right pleural effusion. Reviewed by: Clinton Acevedo MD on 07/12/2023 1:14 PM PDT Approved by: Clinton Acevedo MD on 07/12/2023 1:14 PM PDT Station ID: [id number]
--- NOTE | 2023-07-12 13:18 | Ultrasound Report ---
PROCEDURE: Thoracentesis Puncture INDICATIONS: RT PLEURAL EFFUSION TECHNIQUE: The indications, alternatives, benefits, risks, and complications of the procedure were explained to the patient. Written informed consent was obtained and placed in the chart. The chest was examined sonographically, and an appropriate site was chosen for thoracentesis. The skin was prepared and cisco ped in the usual sterile fashion, and 1% lidocaine was infiltrated from the skin down through the ple ural surface. A 19-gauge catheter-covered needle was then introduced into the pleural space, the cat heter was advanced and the needle was withdrawn, and thereafter pleural fluid was aspirated. The cat heter was then removed and a dressing was applied. COMPARISON: Chest x-ray, 06/23.. FINDINGS: Access site: Right hemithorax. Needle: One-Step centesis catheter with introducer needle. Fluid volume and description: 1700 mL, clougy. Fluid sent for diagnostic testing: Not requested. Medications: 1% lidocaine for local anaesthesia. Complications: None; post-procedural chest radiograph is pending to assess for pneumothorax. IMPRESSION: Successful ultrasound-guided thoracentesis. Reviewed by: Clinton Acevedo MD on 07/12/2023 1:16 PM PDT Approved by: Clinton Acevedo MD on 07/12/2023 1:16 PM PDT Station ID: [id number]
== END 2023-07-12 12:06 | disposition home or self-care (01) ==
LOC: DI 12:05
PROVIDERS: ATTEND Internal Medicine
DX: J90 Pleural effusion, not elsewhere classified (principal); I43 Cardiomyopathy in diseases classified elsewhere; C90.00 Multiple myeloma not having achieved remission
CPT/HCPCS: 32555

== ENCOUNTER 2023-07-23 10:28 | Emergency (ER) | payer MEDICARE, OTHER ==
--- OUTSIDE RECORDS SUMMARY | 2023-07-23 11:16 | EXTERNAL MEDICAL SUMMARY RPT | Continuity of Care Document ---
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 Problems date description facility 2023-04-24 09:03 Dysphagia, unspecified [facility] Procedures date description facility 2023-04-24 00:00 Modified barium swal low with fluoroscopic video recording [facility] Results/Labs test date facility value unit notes Social History date description facility 2023-04-30 00:00 Never smoked tobacco (finding) [facility] Vital Signs date measurement value units 2023-04-30 00:00 BP_diastolic 55 mmHg 2023-04-30 00:00 BP_systolic 127 mmHg 2023-04-30 00:00 heart_rate 72 /min 2023-04-30 00:00 o2_saturation 95 % 2023-04-30 00:00 respiration_rate 16 /min
[2023-07-23] MEDS ORDERED: oxyCODONE 5 MG TABLET PO STA (12:09)
--- NOTE | 2023-07-23 12:16 | ED Physician Documentation ---
History of Present Illness - Stated complaint Stated Complaint: NECK PX,ITCHINESS, - Chief complaint Chief Complaint: General - History obtained from History obtained from: Patient, Family - History of Present Illness Timing: How many weeks ago (3) Pain level max: 7 Pain level now: 7 - Additonal information Additional information: Patient is an 88-year-old male with a history of multiple myeloma who was diagnosed with shingles about 3 weeks ago. States the lesions have crusted over and he is not having any new lesions but is having continued pain. He was given Vicodin but states it is not controlling the pain. No fevers. No chills. Nothing makes it better or worse. Review of Systems Constitutional: denies: Fever, Chills GI: denies: Vomiting, Diarrhea Skin: denies: Rash Musculoskeletal: denies: Neck pain, Back pain Neurologic: denies: Headache PD PAST MEDICAL HISTORY - Past Medical History Cardiovascular: Hypertension, Peripheral Vascular Disease, Atrial fibrillation Respiratory: None, Other Endocrine/Autoimmune: Type 2 diabetes GI: GERD : Benign prostate hypertrophy HEENT: Chronic vision loss Psych: None Musculoskeletal: Osteoarthritis Derm: Other - Past Surgical History Ortho: Hip replacement - Present Medications Home Medications: Ambulatory Orders Medication Instructions Recorded Confirmed Atorvastatin Calcium [Lipitor] 10 mg PO HS 12/08/13 07/16/23 Dabigatran [Pradaxa] 150 mg PO BID 12/08/13 07/16/23 Amlodipine Besylate 10 mg PO DAILY 01/28/14 07/16/23 Losartan [Cozaar] 50 mg PO DAILY 01/09/16 07/16/23 Metoprolol Tartrate [Lopressor] 100 mg PO DAILY 01/09/16 07/16/23 Multivitamin [Theragran] 1 each PO DAILY 01/09/16 07/16/23 metFORMIN [Glucophage] 1 tab PO BID 05/17/20 07/16/23 Amox/Clav 875/125 [Augmentin 1 tablet PO Q12H 10 Days #20 tablet 11/28/22 07/16/23 875/125 Tab] Ondansetron HCl 4 mg PO Q6HR PRN #30 tablet 06/03/23 07/16/23 dexAMETHasone [Decadron] 20 mg PO UD #15 tablet 06/03/23 07/16/23 Potassium Chloride 16 meq PO DAILY 06/11/23 07/16/23 Torsemide 10 mg PO DAILY 06/11/23 07/16/23 HYDROcod/ACETAM 5/325 [[place] 5/325] 1 - 2 tab PO Q6H PRN #15 tablet 06/28/23 07/16/23 Valacyclovir HCl [Valtrex] 1,000 mg PO TID #30 tablet 06/28/23 07/16/23 oxyCODONE [Roxicodone] 5 - 10 mg PO Q6H PRN #20 tablet 07/23/23 MDD 6 - Allergies Allergies/Adverse Reactions: Allergies Allergy/AdvReac Type Severity Reaction Status Date / Time No Known Drug Allergies Allergy Verified 07/23/23 10:41 - Social History Does the pt smoke?: No Smoking Status: Never smoker Does the pt drink ETOH?: No Does the pt have substance abuse?: No - Immunizations Immunizations are current?: Yes - POLST Patient has POLST: No PD ED PE NORMAL - Vitals Vital signs reviewed: Yes - General General: Alert and oriented X 3, No acute distress - HEENT HEENT: Moist mucous membranes - Neck Neck: Supple, no meningeal sign - Cardiac Cardiac: RRR, Strong equal pulses - Respiratory Respiratory: No respiratory distress, Clear bilaterally - Derm Derm: Warm and dry - Extremities Extremities: Other (R posterior neck - Healing rash in a dermatomal pattern down to the right shoulder and right upper back. No open wounds. No vesicles. No pustules. No secondary signs of infection.) - Neuro Neuro: Alert and oriented X 3 Results - Vitals Vitals: Vital Signs - 24 hr 07/23/23 07/23/23 10:37 14:08 Temperature 37 C Heart Rate 73 67 Respiratory 16 16 Rate Blood Pressure 143/76 H 134/74 H O2 Saturation 94 100 Oxygen O2 Source [Without Activity] Nasal cannula O2 Source Room air PD Medical Decision Making - ED course Complexity details: re-evaluated patient, considered differential, d/w patient, d/w family ED course: Patient was shingles on the right side of the neck and the right shoulder. He was given a dose of oxycodone and pain resolved. We will prescribe this for him for home. I did discuss with his oncologist, Dr. Vanegas, She has no other specific recommendations at this time. The patient thought that she may want blood work but she states that this is not necessary at this time. He will continue his current medications and follow-up with his PCP on Saturday as scheduled. Patient counseled regarding signs and symptoms for which I believe and urgent re-evaluation would be necessary. Patient with good understanding of and agreement to plan and is comfortable going home at this time This document was made in part using voice recognition software. While efforts are made to proofread this document, sound alike and grammatical errors may occur. Departure - Departure Disposition: Home, Self Care Clinical Impression: Shingles Qualifiers: Herpes zoster complications: without complications Qualified Code(s): B02.9 - Zoster without complications Condition: Good Instructions: ED Shingles Follow-Up: Matthew Ennis MD [Primary Care Provider] - Within 1 week Prescriptions: oxyCODONE [Roxicodone] 5 - 10 mg PO Q6H PRN #20 tablet MDD 6 PRN Reason: pain Comments: Please follow-up with your doctor on Saturday for further care. Your pain appears due to your shingles. We will place you on oxycodone for home which you were given in the emergency department and worked well for your pain. Please talk to your doctor on Saturday about further pain medication. Please return if you worsen. [facility] [place]. I am prescribing a short course of narcotic pain medication for you. These are potentially dangerous and addictive medications that should be used carefully. These medications may constipate you. Take an czfc-oce-wtbxcod stool softener (docusate) twice daily with plenty of water while taking these medications. If you go 24 hours without a bowel movement, take blhr-jnw-dralcto miralax, per package instructions. Do not drink or drive while taking these medications. If you received narcotic or sedating medications while in the emergency department, do not drive for 24 hours. Store this medication in a safe, secure place and out of reach of children. It is a violation of federal law to give or sell this medication to another person or to use in a manner other than prescribed. The ED will not refill narcotic prescriptions, including prescriptions lost or stolen. To dispose of unwanted medications: 1. [facility] [address] [facility] [place] has a medication drop box. They accept prescription medications (in pill form) Saturday through Saturday 9:00 a.m. to 5:00 p.m. 2. [facility] accepts prescription medications (in pill form only) for disposal year round. Call for more information. 3. Contact the [facility] for the next [facility] sponsored prescription drug collection event. , x7310, or [phone]; Forms: PCP List Discharge Date/Time: 07/23/23 14:10
[2023-07-23 14:18] VITALS: BP 134/74; O2SAT 100
== END 2023-07-23 14:10 | disposition home or self-care (01) ==
LOC: ED 10:28
DX: B02.9 Zoster without complications (principal); I10 Essential (primary) hypertension; I48.91 Unspecified atrial fibrillation; E11.9 Type 2 diabetes mellitus without complications; Z79.899 Other long term (current) drug therapy; Z79.84 Long term (current) use of oral hypoglycemic drugs
CPT/HCPCS: 99282; 99284; A9270

== ENCOUNTER 2023-08-12 14:26 | Outpatient (CLI) | payer MEDICARE, OTHER ==
[2023-08-12 18:09] LABS: BASOPHILS % (AUTO) 0.7 %; EOSINOPHILS # (AUTO) 0.1 10^3/uL (0.0-0.7); EOSINOPHILS % (AUTO) 1.3 %; HCT - HEMATOCRIT 37.3 % (42.0-52.0); HGB - HEMOGLOBIN 12.5 g/dL (14.0-18.0); LYMPHOCYTES # (AUTO) 0.5 10^3/uL (1.5-3.5); MEAN CORPUSCULAR HEMOGLOBIN 33.3 pg (27.0-31.0); MEAN CORPUSCULAR HGB CONC 33.5 g/dL (32.0-36.0); MEAN CORPUSCULAR VOLUME 99.5 fL (80.0-94.0); MEAN PLATELET VOLUME 13.2 fL (7.4-11.4); MONOCYTES # (AUTO) 0.9 10^3/uL (0.0-1.0); MONOCYTES % (AUTO) 20.7 %; NEUTROPHILS # (AUTO) 2.9 10^3/uL (1.5-6.6); NEUTROPHILS % (AUTO) 66.1 %; PLT - PLATELET COUNT 108 10^3/uL (130-450); RED BLOOD COUNT 3.75 10^6/uL (4.70-6.10); RED CELL DISTRIBUTION WIDTH 15.9 % (12.0-15.0); WHITE BLOOD COUNT 4.5 x10^3/uL (4.8-10.8)
[2023-08-12 18:22] LABS: ALBUMIN/GLOBULIN RATIO 1.2 (1.0-2.2); BILIRUBIN,TOTAL 1.5 mg/dL (0.2-1.0); CALCIUM 9.7 mg/dL (8.5-10.3); CREATININE 1.2 mg/dL (0.6-1.3); POTASSIUM 4.1 mmol/L (3.5-4.5); TOTAL PROTEIN 7.4 g/dL (6.4-8.9)
== END 2023-08-12 14:27 | disposition home or self-care (01) ==
LOC: LAB.N 14:26
PROVIDERS: ATTEND Nurse Practitioner Adult Health
DX: C90.00 Multiple myeloma not having achieved remission (principal); I50.30 Unspecified diastolic (congestive) heart failure
CPT/HCPCS: 36415; 80053; 85025

== ENCOUNTER 2023-08-25 19:20 | Outpatient (CLI) | payer MEDICARE, OTHER | END 2023-08-25 19:21 | disposition critical access hospital (66) | LOC: EMS 19:20 | DX: R53.1 Weakness (principal); R41.82 Altered mental status, unspecified | CPT/HCPCS: A0425; A0429 ==

== ENCOUNTER 2023-08-25 19:50 | Emergency (ER) | payer MEDICARE, OTHER ==
--- NOTE | 2023-08-25 20:01 | ED Physician Documentation ---
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 Per EMS family called when he became acutely lethargic and went to the ground while trying to come back from the bathroom. His who is primary irrigation engineer reports that he has been generally unwell x1 day. No reported fever at home. Patient reports feeling "just lousy" but denies any specific areas of pain or discomfort. Blood sugar within normal limits prior to arrival. No medications given prior to arrival. Review of Systems Constitutional: reports: Fatigue Eyes: denies: Loss of vision Ears: denies: Loss of hearing Nose: denies: Rhinorrhea / runny nose, Foreign Body Throat: denies: Dental pain / toothache Cardiac: denies: Chest pain / pressure Respiratory: denies: Dyspnea GI: denies: Abdominal Pain : denies: Dysuria PD PAST MEDICAL HISTORY - Past Medical History Cardiovascular: Hypertension, Peripheral Vascular Disease, Atrial fibrillation Respiratory: None, Other Endocrine/Autoimmune: Type 2 diabetes GI: GERD : Benign prostate hypertrophy HEENT: Chronic vision loss Psych: None Musculoskeletal: Osteoarthritis Derm: Other - Past Surgical History Ortho: Hip replacement - Present Medications Home Medications: Ambulatory Orders Medication Instructions Recorded Confirmed Atorvastatin Calcium [Lipitor] 10 mg PO HS 12/08/13 08/25/23 Losartan [Cozaar] 0.5 tab PO DAILY 01/09/16 08/25/23 Metoprolol Tartrate [Lopressor] 100 mg PO BID 01/09/16 08/25/23 Multivitamin [Theragran] 1 each PO DAILY 01/09/16 08/25/23 metFORMIN [Glucophage] 0.5 tab PO BID 05/17/20 08/25/23 Potassium Chloride 16 meq PO DAILY 06/11/23 08/25/23 Torsemide 10 mg PO DAILY 06/11/23 08/25/23 oxyCODONE [Roxicodone] 5 - 10 mg PO Q6H PRN #20 tablet 07/23/23 08/25/23 MDD 6 Nortriptyline [Pamelor] 1 cap PO DAILY PM 08/25/23 08/25/23 Pregabalin [Lyrica] 1 tab PO TID 08/25/23 08/25/23 Solifenacin Succinate [Vesicare] 1 tab PO DAILY 08/25/23 08/25/23 Valacyclovir HCl [Valtrex] 1,000 mg PO BID 08/25/23 08/25/23 cycloPHOSphamide [Cyclophosphamide] 2 g IV DAILY 08/25/23 08/25/23 - Allergies Allergies/Adverse Reactions: Allergies Allergy/AdvReac Type Severity Reaction Status Date / Time No Known Drug Allergies Allergy Verified 08/25/23 20:08 - Social History Does the pt smoke?: No Smoking Status: Never smoker Does the pt drink ETOH?: No Does the pt have substance abuse?: No - Immunizations Immunizations are current?: Yes - POLST Patient has POLST: No PD ED PE NORMAL - Vitals Vital signs reviewed: Yes - General General: Alert and oriented X 3, No acute distress, Other (Patient elderly, physically diminished) - HEENT HEENT: Atraumatic, PERRL, EOMI, Ears normal, Moist mucous membranes, Pharynx benign - Neck Neck: Supple, no meningeal sign, No bony TTP, No adenopathy, No JVD, No bruit - Cardiac Cardiac: RRR, No murmur - Respiratory Respiratory: No respiratory distress, Clear bilaterally - Abdomen Abdomen: Normal bowel sounds, Non tender, No organomegaly - Rectal Rectal: Deferred - Back Back: No CVA TTP - Derm Derm: Normal color - Extremities Extremities: No deformity - Neuro Neuro: Alert and oriented X 3, hybrid 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 Relevant findings are: Atrial fibrillation with rate 87 bpm. Normal axis. Normal QRS interval. QTc borderline at [address] segment elevations. Nonspecific ST-T wave abnormalities. - Labs Labs: Laboratory Tests 08/25/23 08/25/23 08/25/23 20:11 20:11 20:11 WBC 5.3 RBC 3.71 L Hgb 12.2 L Hct 36.8 L MCV 99.2 H MCH 32.9 H MCHC 33.2 RDW 15.9 H Plt Count 162 MPV 11.4 Neut # (Auto) 3.4 Lymph # (Auto) 0.[address] # (Auto) 1.0 Eos # (Auto) 0.2 Baso # (Auto) 0.0 Absolute Nucleated RBC 0.00 Nucleated RBC % 0.0 INR (Fingerstick) VBG pH 7.370 VBG pCO2 34.1 L VBG pO2 34.0 VBG HCO3 19.3 L VBG Total CO2 20.3 L VBG O2 Saturation 60.1 VBG Base Excess -5.2 L Sodium 133 L Potassium 3.8 Chloride 99 L Carbon Dioxide 28 Anion Gap 6.0 BUN 35 H Creatinine 1.2 Estimated GFR (MDRD) 57 L Glucose 142 H Calcium 9.3 Phosphorus 3.0 Total Bilirubin 1.1 H AST 14 ALT 10 Alkaline Phosphatase 76 B-Natriuretic Peptide Total Protein 7.2 Albumin 3.8 Globulin 3.4 Albumin/Globulin Ratio 1.1 Lipase 25 Urine Color Urine Clarity Urine pH Ur Specific [place] Urine Protein Urine Glucose (UA) Urine Ketones Urine Occult Blood Urine Nitrite Urine Bilirubin Urine Urobilinogen Ur Leukocyte Esterase Ur Microscopic Review Urine Culture Comments Nasal Adenovirus (PCR) Nasal B. parapertussis DNA (PCR) Nasal Coronavir 229E PCR Nasal Coronavir HKU1 PCR Nasal Coronavir NL63 PCR Nasal Coronavir OC43 PCR Nasal Enterovir/Rhinovir PCR Nasal Influenza B PCR Nasal Influenza A PCR Nasal Parainfluen 1 PCR Nasal Parainfluen 2 PCR Nasal Parainfluen 3 PCR Nasal Parainfluen 4 PCR Nasal RSV (PCR) Nasal B.pertussis DNA PCR Nasal C.pneumoniae (PCR) Gustavo Human Metapneumo PCR Nasal M.pneumoniae (PCR) Nasal SARS-CoV-2 (PCR) Salicylates < 1.5 Urine Opiates Screen Ur Oxycodone Screen Urine Methadone Screen Ur Propoxyphene Screen Acetaminophen 0.5 Ur Barbiturates Screen Ur Tricyclics Screen Ur Phencyclidine Scrn Ur Amphetamine Screen U Methamphetamines Scrn U Benzodiazepines Scrn Urine Cocaine Screen U Cannabinoids Screen Ethyl Alcohol < 10.0 08/25/23 08/25/23 08/25/23 20:11 20:22 20:28 WBC RBC Hgb Hct MCV MCH MCHC RDW Plt Count MPV Neut # (Auto) Lymph # (Auto) [place] # (Auto) Eos # (Auto) Baso # (Auto) Absolute Nucleated RBC Nucleated RBC % INR (Fingerstick) 1.2 VBG pH VBG pCO2 VBG pO2 VBG HCO3 VBG Total CO2 VBG O2 Saturation VBG Base Excess Sodium Potassium Chloride Carbon Dioxide Anion Gap BUN Creatinine Estimated GFR (MDRD) Glucose Calcium Phosphorus Total Bilirubin AST ALT Alkaline Phosphatase B-Natriuretic Peptide 416 H Total Protein Albumin Globulin Albumin/Globulin Ratio Lipase Urine Color Urine Clarity Urine pH Ur Specific [place] Urine Protein Urine Glucose (UA) Urine Ketones Urine Occult Blood Urine Nitrite Urine Bilirubin Urine Urobilinogen Ur Leukocyte Esterase Ur Microscopic Review Urine Culture Comments Nasal Adenovirus (PCR) NOT DETECTED Nasal B. parapertussis DNA (PCR) NOT DETECTED Nasal Coronavir 229E PCR NOT DETECTED Nasal Coronavir HKU1 PCR NOT DETECTED Nasal Coronavir NL63 PCR NOT DETECTED Nasal Coronavir OC43 PCR NOT DETECTED Nasal Enterovir/Rhinovir PCR NOT DETECTED Nasal Influenza B PCR NOT DETECTED Nasal Influenza A PCR NOT DETECTED Nasal Parainfluen 1 PCR NOT DETECTED Nasal Parainfluen 2 PCR NOT DETECTED Nasal Parainfluen 3 PCR NOT DETECTED Nasal Parainfluen 4 PCR NOT DETECTED Nasal RSV (PCR) NOT DETECTED Nasal B.pertussis DNA PCR NOT DETECTED Nasal C.pneumoniae (PCR) NOT DETECTED Gustavo Human Metapneumo PCR NOT DETECTED Nasal M.pneumoniae (PCR) NOT DETECTED Nasal SARS-CoV-2 (PCR) NOT DETECTED Salicylates Urine Opiates Screen Ur Oxycodone Screen Urine Methadone Screen Ur Propoxyphene Screen Acetaminophen Ur Barbiturates Screen Ur Tricyclics Screen Ur Phencyclidine Scrn Ur Amphetamine Screen U Methamphetamines Scrn U Benzodiazepines Scrn Urine Cocaine Screen U Cannabinoids Screen Ethyl Alcohol 08/25/23 21:00 WBC RBC Hgb Hct MCV MCH MCHC RDW Plt Count MPV Neut # (Auto) Lymph # (Auto) [place] # (Auto) Eos # (Auto) Baso # (Auto) Absolute Nucleated RBC Nucleated RBC % INR (Fingerstick) VBG pH VBG pCO2 VBG pO2 VBG HCO3 VBG Total CO2 VBG O2 Saturation VBG Base Excess Sodium Potassium Chloride Carbon Dioxide Anion Gap BUN Creatinine Estimated GFR (MDRD) Glucose Calcium Phosphorus Total Bilirubin AST ALT Alkaline Phosphatase B-Natriuretic Peptide Total Protein Albumin Globulin Albumin/Globulin Ratio Lipase Urine Color YELLOW Urine Clarity CLEAR Urine pH 6.5 Ur Specific [place] <=1.005 Urine Protein TRACE Urine Glucose (UA) NEGATIVE Urine Ketones NEGATIVE Urine Occult Blood NEGATIVE Urine Nitrite NEGATIVE Urine Bilirubin NEGATIVE Urine Urobilinogen 0.2 (NORMAL) Ur Leukocyte Esterase NEGATIVE Ur Microscopic Review NOT INDICATED Urine Culture Comments NOT INDICATED Nasal Adenovirus (PCR) Nasal B. parapertussis DNA (PCR) Nasal Coronavir 229E PCR Nasal Coronavir HKU1 PCR Nasal Coronavir NL63 PCR Nasal Coronavir OC43 PCR Nasal Enterovir/Rhinovir PCR Nasal Influenza B PCR Nasal Influenza A PCR Nasal Parainfluen 1 PCR Nasal Parainfluen 2 PCR Nasal Parainfluen 3 PCR Nasal Parainfluen 4 PCR Nasal RSV (PCR) Nasal B.pertussis DNA PCR Nasal C.pneumoniae (PCR) Gustavo Human Metapneumo PCR Nasal M.pneumoniae (PCR) Nasal SARS-CoV-2 (PCR) Salicylates Urine Opiates Screen NEGATIVE Ur Oxycodone Screen POSITIVE H Urine Methadone Screen NEGATIVE Ur Propoxyphene Screen NEGATIVE Acetaminophen Ur Barbiturates Screen NEGATIVE Ur Tricyclics Screen NEGATIVE Ur Phencyclidine Scrn NEGATIVE Ur Amphetamine Screen NEGATIVE U Methamphetamines Scrn NEGATIVE U Benzodiazepines Scrn NEGATIVE Urine Cocaine Screen NEGATIVE U Cannabinoids Screen NEGATIVE Ethyl Alcohol PD Medical Decision Making - ED course Complexity details: reviewed old records, reviewed results, re-evaluated patient, considered differential, d/w patient ED course: Patient 88-year-old -year-old male with past medical significant for multiple myeloma and chronic atrial fibrillation presenting to the emergency department with generalized weakness. Symptoms ongoing x1 day. Today became so weak that he went to the ground on his way to the bathroom. Family was unable to help him rise. Lives with who is primary irrigation engineer. Also has a home health nurse that is available to him periodically. Afebrile, hemodynamically stable on arrival to the emergency department. Clinically the patient appears physically deconditioned. Barely able to lift himself up on the gurney to accommodate and auscultation of his back. EKG shows a rate controlled atrial fibrillation without indications of acute cardiac ischemia. Labs demonstrate an elevated beta natruretic peptide. X-ray shows a slightly enlarged right chronic pleural effusion as well as some pulmonary vascular congestion concerning for pulmonary edema. No beds available regionally or at our facility this evening. We will board him in the emergency department overnight and give him a low-dose diuretic with careful monitoring of his vitals and blood pressure. We will be signing the patient out to the oncoming physician. Likely patient will benefit from evaluation with social work and possible placement in long-term facility. Signed out to the oncoming physician. Please see their documentation for further detail. Departure - Departure Clinical Impression: General weakness, Pleural effusion Pulmonary edema Qualifiers: Chronicity: acute Qualified Code(s): J81.0 - Acute pulmonary edema
[2023-08-25 20:21] LABS: BASOPHILS % (AUTO) 0.6 %; EOSINOPHILS # (AUTO) 0.2 10^3/uL (0.0-0.7); EOSINOPHILS % (AUTO) 3.8 %; HCT - HEMATOCRIT 36.8 % (42.0-52.0); HGB - HEMOGLOBIN 12.2 g/dL (14.0-18.0); LYMPHOCYTES # (AUTO) 0.7 10^3/uL (1.5-3.5); LYMPHOCYTES % (AUTO) 12.7 %; MEAN CORPUSCULAR HEMOGLOBIN 32.9 pg (27.0-31.0); MEAN CORPUSCULAR HGB CONC 33.2 g/dL (32.0-36.0); MEAN CORPUSCULAR VOLUME 99.2 fL (80.0-94.0); MEAN PLATELET VOLUME 11.4 fL (7.4-11.4); MONOCYTES % (AUTO) 18.6 %; NEUTROPHILS # (AUTO) 3.4 10^3/uL (1.5-6.6); NEUTROPHILS % (AUTO) 63.9 %; PLT - PLATELET COUNT 162 10^3/uL (130-450); RED BLOOD COUNT 3.71 10^6/uL (4.70-6.10); RED CELL DISTRIBUTION WIDTH 15.9 % (12.0-15.0); WHITE BLOOD COUNT 5.3 x10^3/uL (4.8-10.8)
[2023-08-25 20:23] LABS: VBG BASE EXCESS -5.2 mmol/L (-2 - +2); VBG HCO3 19.3 mmol/L (23-28); VBG OXYGEN SATURATION 60.1 % (60-80); VBG PCO2 34.1 mmHg (41-51); VBG PH 7.37 (7.31-7.41); VBG TOTAL CO2 20.3 mmol/L (24-29)
[2023-08-25 20:37] LABS: ACETAMINOPHEN 0.5 ug/mL; ALBUMIN 3.8 g/dL (3.2-5.5); ALBUMIN/GLOBULIN RATIO 1.1 (1.0-2.2); ALKALINE PHOSPHATASE 76 IU/L (42-121); ALT ALANINE AMINOTRANSFERASE 10 IU/L (10-60); AST ASPARTATE AMINOTRANSFERASE 14 IU/L (10-42); BILIRUBIN,TOTAL 1.1 mg/dL (0.2-1.0); BUN - BLOOD UREA NITROGEN 35 mg/dL (6-20); CALCIUM 9.3 mg/dL (8.5-10.3); CARBON DIOXIDE - CO2 28 mmol/L (21-32); CHLORIDE 99 mmol/L (101-111); CREATININE 1.2 mg/dL (0.6-1.3); ETOH - ETHANOL < 10.0 mg/dL; GFR - MDRD 57 (>89); GLUCOSE 142 mg/dL (74-104); LIPASE 25 U/L (11-82); POTASSIUM 3.8 mmol/L (3.5-4.5); SODIUM 133 mmol/L (135-145); TOTAL PROTEIN 7.2 g/dL (6.4-8.9)
[2023-08-25 20:42] LABS: SALICYLATE < 1.5 mg/dL
--- NOTE | 2023-08-25 20:59 | XRAY Report ---
PROCEDURE: Chest 1 View X-Ray INDICATIONS: chest pain TECHNIQUE: One view of the chest was acquired. COMPARISON: 07/12/2023 FINDINGS: Surgical changes and devices: Overlying monitoring wires. Lungs and pleura: Right mid and lower lung opacity with meniscus sign. Diffuse interstitial thickeni ng, similar compared to prior. No pneumothorax. Mediastinum: Stable heart size. Moderate central vascular congestion, increased compared to prior. Bones and chest wall: Moderate degenerative changes in the left shoulder. IMPRESSION: 1. Persistent right pleural effusion, similar, slightly larger compared to the prior exam. 2. Moderate central vascular congestion and chronic interstitial thickening may indicate pulmonary ed jayna. Reviewed by: Yanique Wheeler MD on 08/25/2023 8:58 PM PDT Approved by: Yanique Wheeler MD on 08/25/2023 8:58 PM PDT Station ID: [id number]
[2023-08-25 21:05] LABS: MUDS CUTOFF CONCENTRATIONS CUTOFF CONC BELOW:
[2023-08-25 21:07] LABS: BILIRUBIN,URINE NEGATIVE (NEGATIVE); GLUCOSE, URINE (UA) NEGATIVE (NEGATIVE); KETONES,URINE (UA) NEGATIVE (NEGATIVE); LEUKOCYTE ESTERASE, URINE NEGATIVE (NEGATIVE); NITRITE,URINE NEGATIVE (NEGATIVE); OCCULT BLOOD,URINE NEGATIVE (NEGATIVE); PH,URINE 6.5 PH (5.0-7.5); PROTEIN,URINE TRACE mg/dL (NEGATIVE); UROBILINOGEN,URINE 0.2 (NORMAL) E.U./dL (NORMAL)
[2023-08-25 21:08] LABS: CLARITY,URINE CLEAR (CLEAR)
[2023-08-25 21:17] LABS: AMPHETAMINE SCREEN,URINE NEGATIVE (NEGATIVE); BARBITURATE SCREEN,UR NEGATIVE (NEGATIVE); BENZODIAZEPINES SCREEN, URINE NEGATIVE (NEGATIVE); COCAINE SCREEN URINE NEGATIVE (NEGATIVE); METHADONE SCREEN, URINE NEGATIVE (NEGATIVE); METHAMPHETAMINES SCREEN, URINE NEGATIVE (NEGATIVE); OPIATE SCREEN, URINE NEGATIVE (NEGATIVE); OXYCODONE SCREEN, URINE POSITIVE (NEGATIVE); PROPOXYPHENE SCREEN, URINE NEGATIVE (NEGATIVE); THC CANNABINOID SCREEN, URINE NEGATIVE (NEGATIVE); TRICYCLIC ANTIDEPRESSANT,URINE NEGATIVE (NEGATIVE)
[2023-08-25 21:23] LABS: B. PARAPERTUSSIS- RESP PCR PAN NOT DETECTED; B. PERTUSSIS- RESP PCR PANEL NOT DETECTED; C. PNEUMONIAE- RESP PCR PANEL NOT DETECTED; CORONAVIRUS 229E-RESP PCR NOT DETECTED; CORONAVIRUS HKU1-RESP PCR NOT DETECTED; CORONAVIRUS NL63-RESP PCR NOT DETECTED; CORONAVIRUS OC43-RESP PCR NOT DETECTED; HUMAN METAPNEUMOVIRUS NOT DETECTED; INFLUENZA A- RESP PCR PANEL NOT DETECTED; INFLUENZA B - RESP PCR PANEL NOT DETECTED; M. PNEUMONIAE- RESP PCR PANEL NOT DETECTED; PARAINFLUENZA VIRUS 1 NOT DETECTED; PARAINFLUENZA VIRUS 2 NOT DETECTED; PARAINFLUENZA VIRUS 3 NOT DETECTED; PARAINFLUENZA VIRUS 4 NOT DETECTED; RHINOVIRUS/ENTEROVIRUS NOT DETECTED; RSV- RESP PCR PANEL NOT DETECTED; SARS-CoV-2 -RESP PCR PANEL NOT DETECTED
[2023-08-25] MEDS ORDERED: FUROSEMIDE 40 MG/4 ML VIAL IVP STA (21:45)
[2023-08-26] MEDS ORDERED: oxyCODONE 5 MG TABLET PO PRN (00:40)
[2023-08-26] MEDS ORDERED: oxyCODONE 5 MG TABLET PO STA (07:19)
--- NOTE | 2023-08-26 09:07 | CT Report ---
PROCEDURE: HEAD WO INDICATIONS: general weakness during night/confused TECHNIQUE: Noncontrast 4.5 mm thick angled axial sections acquired from the foramen magnum to the vertex. For r adiation dose reduction, the following was used: automated exposure control, adjustment of mA and/or kV according to patient size. COMPARISON: None. FINDINGS: Image quality: Excellent. The ventricular system and cortical sulci demonstrate atrophy, consistent for patient's stated age. There are areas of hypodensity in the periventricular and subcortical white matter. There is no acut e intra or extra-axial fluid collection. No acute hemorrhage, mass lesion or midline shift. Brainst em is unremarkable. Globes are symmetrical. Sinuses are aerated. Osseous structures are intact. IMPRESSION: 1. No acute intracranial process. 2. Moderate atrophy and chronic microvascular ischemic changes. Reviewed by: Kamila Magallon MD on 08/26/2023 9:06 AM PDT Approved by: Kamila Magallon MD on 08/26/2023 9:06 AM PDT Station ID: [id number]
[2023-08-26] MEDS ORDERED: DIPHENOX/ATROPINE 2.5/0.025 MG TABLET PO STA (12:05)
[2023-08-26] MEDS ORDERED: KETOROLAC 15 MG/ML VIAL IVP STA (12:05)
--- NOTE | 2023-08-26 13:03 | ED Physician Documentation ---
ED Addendum - Addendum Addendum: 08/26/23 13:01 The patient had an episode of general weakness and lightheadedness while walking to the bathroom during the night. He did not pass out completely. He denied lateralizing or focal weakness. No headache or belly pain. He has residual shoulder pain from shingles 7 weeks ago. No new areas. He is feeling okay here. He had multiple labs and tests earlier. He had been left for social work to consult with to see if he needed any other assistance at home or if he felt he was able to manage. The patient feels that he would prefer going home. He has a partner there named Derek that he actually helps her. There is no obvious admission criteria. He has chronic A-fib but normal rate and good blood pressure. Labs are otherwise good. At this point we will discharge him to home to continue usual medications and to follow-up with his primary return to the ER if recurrent symptoms. He had eaten breakfast this morning without problems. He is sitting up in conversant. He did stand bedside for urinal. Disposition: The patient discharged home in stable condition. Diagnoses: 1. Near syncope of uncertain etiology.
[2023-08-26 14:30] VITALS: BP 127/72; O2SAT 97
== END 2023-08-26 15:43 | disposition home or self-care (01) ==
LOC: EDUNIT# → ED 19:50
DX: R53.1 Weakness (principal); R55 Syncope and collapse; J90 Pleural effusion, not elsewhere classified; J18.0 Bronchopneumonia, unspecified organism; I48.91 Unspecified atrial fibrillation; Z20.822 Contact with and (suspected) exposure to COVID-19
CPT/HCPCS: 36415; 70450; 71045; 80053; 80306; 80307; 81003; 82803; 83690; 83735; 83880; 84100; 85025; 85610; 87633; 93005; 96374; 96375; 99283; 99284; A9270; G0480; 80320; 80329; 81001; 87086

== ENCOUNTER 2023-09-03 12:36 | Outpatient (CLI) | payer MEDICARE, OTHER | END 2023-09-03 12:37 | disposition EMS.NT | LOC: EMS 12:36 | DX: S00.01XA Abrasion of scalp, initial encounter (principal); W01.0XXA Fall on same level from slipping, tripping and stumbling without subsequent striking against object, initial encounter; Y92.008 Other place in unspecified non-institutional (private) residence as the place of occurrence of the external cause ==

== ENCOUNTER 2023-09-12 20:40 | Outpatient (CLI) | payer MEDICARE, OTHER | END 2023-09-12 20:41 | disposition EMS.NT | LOC: EMS 20:40 | DX: M79.18 Myalgia, other site (principal); W01.0XXA Fall on same level from slipping, tripping and stumbling without subsequent striking against object, initial encounter; Y92.003 Bedroom of unspecified non-institutional (private) residence as the place of occurrence of the external cause ==

== ENCOUNTER 2023-10-30 14:46 | Outpatient (CLI) | payer MEDICARE, OTHER ==
[2023-10-30 18:03] LABS: BASOPHILS % (AUTO) 0.4 %; EOSINOPHILS # (AUTO) 0.1 10^3/uL (0.0-0.7); LYMPHOCYTES % (AUTO) 12.5 %; MEAN CORPUSCULAR HEMOGLOBIN 31.5 pg (27.0-31.0); MEAN CORPUSCULAR HGB CONC 32.5 g/dL (32.0-36.0); MEAN CORPUSCULAR VOLUME 96.9 fL (80.0-94.0); MEAN PLATELET VOLUME 12.6 fL (7.4-11.4); MONOCYTES # (AUTO) 0.9 10^3/uL (0.0-1.0); MONOCYTES % (AUTO) 11.5 %; NEUTROPHILS % (AUTO) 74.3 %; PLT - PLATELET COUNT 163 10^3/uL (130-450); RED BLOOD COUNT 4.13 10^6/uL (4.70-6.10); RED CELL DISTRIBUTION WIDTH 14.5 % (12.0-15.0)
[2023-10-30 18:22] LABS: ALBUMIN 3.8 g/dL (3.2-5.5); BILIRUBIN,TOTAL 1.2 mg/dL (0.2-1.0); CALCIUM 9.8 mg/dL (8.5-10.3); CREATININE 1.1 mg/dL (0.6-1.3); POTASSIUM 4.1 mmol/L (3.5-4.5); TOTAL PROTEIN 7.5 g/dL (6.4-8.9)
[2023-10-30 21:13] LABS: ESTIMATED AVERAGE GLUCOSE 126 mg/dL (70-100)
== END 2023-10-30 14:47 | disposition home or self-care (01) ==
LOC: LAB.N 14:46
PROVIDERS: ATTEND Nurse Practitioner Adult Health
DX: I50.30 Unspecified diastolic (congestive) heart failure (principal); E11.9 Type 2 diabetes mellitus without complications; C90.00 Multiple myeloma not having achieved remission; D53.9 Nutritional anemia, unspecified
CPT/HCPCS: 36415; 80053; 83036; 85025

== ENCOUNTER 2023-12-24 12:30 | Outpatient (CLI) | payer MEDICARE, OTHER ==
[2023-12-24 12:51] LABS: BASOPHILS % (AUTO) 0.3 %; EOSINOPHILS # (AUTO) 0.1 10^3/uL (0.0-0.7); EOSINOPHILS % (AUTO) 0.8 %; HCT - HEMATOCRIT 37.3 % (42.0-52.0); HGB - HEMOGLOBIN 12.2 g/dL (14.0-18.0); LYMPHOCYTES # (AUTO) 0.6 10^3/uL (1.5-3.5); LYMPHOCYTES % (AUTO) 9.2 %; MEAN CORPUSCULAR HEMOGLOBIN 30.7 pg (27.0-31.0); MEAN CORPUSCULAR HGB CONC 32.7 g/dL (32.0-36.0); MEAN PLATELET VOLUME 10.6 fL (7.4-11.4); MONOCYTES # (AUTO) 0.7 10^3/uL (0.0-1.0); MONOCYTES % (AUTO) 11.8 %; NEUTROPHILS # (AUTO) 4.7 10^3/uL (1.5-6.6); NEUTROPHILS % (AUTO) 77.6 %; PLT - PLATELET COUNT 171 10^3/uL (130-450); RED BLOOD COUNT 3.97 10^6/uL (4.70-6.10); WHITE BLOOD COUNT 6.1 x10^3/uL (4.8-10.8)
[2023-12-24 13:12] LABS: ALBUMIN 3.4 g/dL (3.2-5.5); ALBUMIN/GLOBULIN RATIO 0.8 (1.0-2.2); BILIRUBIN,TOTAL 1.1 mg/dL (0.2-1.0); CALCIUM 9.6 mg/dL (8.5-10.3); POTASSIUM 3.8 mmol/L (3.5-4.5); TOTAL PROTEIN 7.6 g/dL (6.4-8.9)
--- NOTE | 2023-12-24 13:41 | XRAY Report ---
PROCEDURE: Chest 2V INDICATIONS: PLEURAL EFFUSION TECHNIQUE: 2 views of the chest were acquired. COMPARISON: Chest x-ray 08/25/2023 FINDINGS: Surgical changes and devices: None. Lungs and pleura: Increased right effusion now moderate to severe. Mediastinum: Mediastinal contours appear normal. Heart size is enlarged Bones and chest wall: No suspicious bony lesions. Overlying soft tissues appear unremarkable. IMPRESSION: Increased appearance of right effusion. Underlying areas of pneumonia, atelectasis or neoplastic mass cannot be excluded. Reviewed by: Kamila Magallon MD on 12/24/2023 1:40 PM PST Approved by: Kamila Magallon MD on 12/24/2023 1:40 PM PST Station ID: [id number]
== END 2023-12-24 12:31 | disposition home or self-care (01) ==
LOC: DI 12:30
PROVIDERS: ATTEND Nurse Practitioner Adult Health
DX: I50.30 Unspecified diastolic (congestive) heart failure (principal); J90 Pleural effusion, not elsewhere classified; C90.01 Multiple myeloma in remission; I27.20 Pulmonary hypertension, unspecified; C90.00 Multiple myeloma not having achieved remission
CPT/HCPCS: 36415; 80053; 85025

== ENCOUNTER 2023-12-30 09:58 | Outpatient (CLI) | payer MEDICARE, OTHER ==
[2023-12-30] MEDS ORDERED: LIDOCAINE-MPF 1% 5 ML VIAL ONE (10:16)
--- NOTE | 2023-12-30 11:07 | XRAY Report ---
PROCEDURE: Post Thoracentesis 1V CXR INDICATIONS: PLEURAL EFFUSION TECHNIQUE: One view of the chest was acquired. COMPARISON: 12/24/2023 FINDINGS: Surgical changes and devices: None. Lungs and pleura: Decreased right-sided pleural effusion, now moderate. No pneumothorax. Mediastinum: Mediastinal contours appear normal. Heart size is normal. Bones and chest wall: No suspicious bony lesions. Overlying soft tissues appear unremarkable. IMPRESSION: No acute cardiopulmonary process. No pneumothorax. Reviewed by: Erich Johnson MD on 12/30/2023 11:05 AM PST Approved by: Erich Johnson MD on 12/30/2023 11:05 AM PST Station ID: [id number]
--- NOTE | 2023-12-30 14:26 | Ultrasound Report ---
PROCEDURE: Thoracentesis Puncture INDICATIONS: PLEURAL EFFUSION TECHNIQUE: The indications, alternatives, benefits, risks, and complications of the procedure were explained to the patient. Written informed consent was obtained and placed in the chart. The chest was examined sonographically, and an appropriate site was chosen for thoracentesis. The skin was prepared and cisco ped in the usual sterile fashion, and 1% lidocaine was infiltrated from the skin down through the ple ural surface. A 19-gauge catheter-covered needle was then introduced into the pleural space, the cat heter was advanced and the needle was withdrawn, and thereafter pleural fluid was aspirated. The cat heter was then removed and a dressing was applied. COMPARISON: None. FINDINGS: Access site: Right hemithorax. Needle: One-Step centesis catheter with introducer needle. Fluid volume and description: 2 L of red fluid. Fluid sent for diagnostic testing: No. Medications: 1% lidocaine for local anaesthesia. Complications: None. IMPRESSION: Successful ultrasound-guided thoracentesis. Reviewed by: Erich Johnson MD on 12/30/2023 2:25 PM PST Approved by: Erich Johnson MD on 12/30/2023 2:25 PM PST Station ID: [id number]
== END 2023-12-30 09:59 | disposition home or self-care (01) ==
LOC: DI 09:58
PROVIDERS: ATTEND Nurse Practitioner Adult Health
DX: J90 Pleural effusion, not elsewhere classified (principal)
CPT/HCPCS: 32555

== ENCOUNTER 2024-01-31 08:00 | Outpatient (CLI) | payer MEDICARE, OTHER | END 2024-01-31 23:59 | disposition home or self-care (01) | LOC: PC 08:00 | PROVIDERS: ATTEND Nurse Practitioner Adult Health | DX: Z51.5 Encounter for palliative care (principal); B02.29 Other postherpetic nervous system involvement; K59.03 Drug induced constipation; F32.A Depression, unspecified; J90 Pleural effusion, not elsewhere classified; Z63.8 Other specified problems related to primary support group; Z71.89 Other specified counseling; Z66 Do not resuscitate | CPT/HCPCS: 99215 ==

== ENCOUNTER 2024-02-02 08:00 | Outpatient (CLI) | payer MEDICARE, OTHER | END 2024-02-02 23:59 | disposition home or self-care (01) | LOC: PC 08:00 | PROVIDERS: ATTEND Nurse Practitioner Adult Health | DX: Z51.5 Encounter for palliative care (principal); B02.29 Other postherpetic nervous system involvement | CPT/HCPCS: 99426 ==

== ENCOUNTER 2024-02-07 15:42 | Outpatient (CLI) | payer MEDICARE, OTHER ==
[2024-02-07 17:32] LABS: BASOPHILS % (AUTO) 0.3 %; EOSINOPHILS % (AUTO) 0.5 %; HCT - HEMATOCRIT 33.3 % (42.0-52.0); HGB - HEMOGLOBIN 10.4 g/dL (14.0-18.0); LYMPHOCYTES # (AUTO) 0.6 10^3/uL (1.5-3.5); LYMPHOCYTES % (AUTO) 7.4 %; MEAN CORPUSCULAR HEMOGLOBIN 29.8 pg (27.0-31.0); MEAN CORPUSCULAR HGB CONC 31.2 g/dL (32.0-36.0); MEAN CORPUSCULAR VOLUME 95.4 fL (80.0-94.0); MONOCYTES # (AUTO) 1.2 10^3/uL (0.0-1.0); MONOCYTES % (AUTO) 14.5 %; NEUTROPHILS # (AUTO) 6.1 10^3/uL (1.5-6.6); NEUTROPHILS % (AUTO) 76.8 %; PLT - PLATELET COUNT 228 10^3/uL (130-450); RED BLOOD COUNT 3.49 10^6/uL (4.70-6.10); RED CELL DISTRIBUTION WIDTH 15.6 % (12.0-15.0)
[2024-02-07 17:50] LABS: ALBUMIN/GLOBULIN RATIO 0.7 (1.0-2.2); CALCIUM 9.4 mg/dL (8.5-10.3); CREATININE 0.8 mg/dL (0.6-1.3); TOTAL PROTEIN 7.6 g/dL (6.4-8.9)
== END 2024-02-07 15:43 | disposition home or self-care (01) ==
LOC: LAB.N 15:42
PROVIDERS: ATTEND Nurse Practitioner Adult Health
DX: I50.30 Unspecified diastolic (congestive) heart failure (principal); C90.01 Multiple myeloma in remission; D75.81 Myelofibrosis
CPT/HCPCS: 36415; 80053; 85025

== ENCOUNTER 2024-02-15 08:23 | Outpatient (CLI) | payer MEDICARE, OTHER | END 2024-02-15 23:59 | disposition EMS.NT | LOC: EMS 08:23 | DX: R53.1 Weakness (principal) ==

== ENCOUNTER 2024-02-17 23:51 | Outpatient (CLI) | payer MEDICARE, OTHER | END 2024-02-17 23:52 | disposition EMS.NT | LOC: EMS 23:51 | DX: R53.1 Weakness (principal) ==

== ENCOUNTER 2024-02-25 06:21 | Outpatient (CLI) | payer MEDICARE, OTHER | END 2024-02-25 23:59 | disposition EMS.NT | LOC: EMS 06:21 | DX: S00.11XA Contusion of right eyelid and periocular area, initial encounter (principal); W18.11XA Fall from or off toilet without subsequent striking against object, initial encounter; Y92.002 Bathroom of unspecified non-institutional (private) residence as the place of occurrence of the external cause ==

== ENCOUNTER 2024-02-27 16:55 | Outpatient (CLI) | payer MEDICARE, OTHER | END 2024-02-27 22:50 | LOC: EMS 16:55 | PROVIDERS: ATTEND Family Medicine | DX: Z51.5 Encounter for palliative care (principal); Z74.01 Bed confinement status | CPT/HCPCS: A0425; A0428 ==

== ENCOUNTER 2024-03-03 08:00 | Outpatient (CLI) | payer MEDICARE, OTHER | END 2024-03-03 23:59 | disposition E | LOC: PC 08:00 | PROVIDERS: ATTEND Nurse Practitioner Adult Health | DX: Z51.5 Encounter for palliative care (principal); C90.00 Multiple myeloma not having achieved remission; B02.29 Other postherpetic nervous system involvement; G89.29 Other chronic pain | CPT/HCPCS: 99426; 99427 ==